=== PATIENT | female | born 1955 | race Caucasian/White ===

== ENCOUNTER → 2019-10-26 11:20 | Outpatient (BNVA) | payer MEDICARE, MEDICAID, SELFPAY | PROVIDERS: Family Provider Family Medicine; Visit Provider Obstetrics & Gynecology | DX: N89.1 Moderate vaginal dysplasia (principal) | CPT/HCPCS: 88175 ==

== ENCOUNTER 2019-11-10 10:55 | Outpatient (CLI) | payer MEDICARE, SELFPAY ==
--- NOTE | 2019-11-10 11:42 | MM_ITS ---
WS: [id number] DIAGNOSTIC LEFT DIGITAL MAMMOGRAM WITH CAD HISTORY: HX OF BREAST CA (RT MAST) COMPARISON: None available. Technique: CC, MLO and ML views. Breast composition: There are scattered areas of fibroglandular density. Calcifications in the anterior mid breast. No distortion. No interval change. MM/[place] [id number] IMPRESSION: BI-RADS: 2-Benign FOLLOW UP: 1 Year Follow-up
== END 2019-11-10 10:56 | disposition home or self-care (01) ==
LOC: RADSHAW 11:00
PROVIDERS: PCP Family Medicine; Visit Provider Family Medicine
DX: Z85.3 Personal history of malignant neoplasm of breast (principal)
CPT/HCPCS: 77065

== ENCOUNTER 2020-10-23 14:00 | Outpatient (CLI) | payer MEDICARE, MEDICAID, SELFPAY ==
--- NOTE | 2020-10-23 14:19 | XR_ITS ---
WS: [id number] SCREENING DEXA SCAN [facility] CLINICAL INFORMATION: OSTEOPOROSIS COMPARISON: FINDINGS: The L1-L4 bone mineral density measures 0.986 g/cm2. This corresponds to a T score score of -1.6 and Z score of -0.3. Left femoral neck bone mineral density measures 0.915 g/cm2. This corresponds to a T score of -0.7 an d Z score of 0.3. Right femoral neck bone mineral density measures 0.918 g/cm2. This corresponds to a T score -0.7of an d Z score of 0.4. Mean femoral neck bone mineral density measures 0.917 g/cm2. This corresponds to a T score of -0.7 an d Z score of 0.4. XR/XR DEXA axial skeleton* [id number] IMPRESSION: Osteopenia lumbar spine. Normal bone mineralization femoral necks. Patient's FRAX calculated 10 year probability for major osteoporotic fracture i s 9.3 % and osteoporotic hip fracture is 1.1%.
== END 2020-10-23 14:01 | disposition home or self-care (01) ==
PROVIDERS: PCP Family Medicine; Visit Provider Family Medicine
DX: M81.0 Age-related osteoporosis without current pathological fracture (principal); M85.88 Other specified disorders of bone density and structure, other site
CPT/HCPCS: 77080

== ENCOUNTER → 2020-11-22 13:23 | Outpatient (BNVA) | payer MEDICARE, SELFPAY | PROVIDERS: PCP Family Medicine; Visit Provider Nurse Practitioner Women's Health | DX: N89.1 Moderate vaginal dysplasia (principal); Z85.3 Personal history of malignant neoplasm of breast; Z86.001 Personal history of in-situ neoplasm of cervix uteri; Z01.419 Encounter for gynecological examination (general) (routine) without abnormal findings | CPT/HCPCS: 88175 ==

== ENCOUNTER → 2020-12-28 11:32 | Outpatient (BNVA) | payer MEDICARE, MEDICAID, SELFPAY | PROVIDERS: PCP Family Medicine; Visit Provider Obstetrics & Gynecology | DX: R87.610 Atypical squamous cells of undetermined significance on cytologic smear of cervix (ASC-US) (principal); R87.810 Cervical high risk human papillomavirus (HPV) DNA test positive | CPT/HCPCS: 88305 ==

== ENCOUNTER 2021-01-21 13:21 | Outpatient (CLI) | payer MEDICARE, MEDICAID, SELFPAY ==
--- NOTE | 2021-01-21 13:39 | MM_ITS ---
WS: [id number] LEFT DIGITAL MAMMOGRAPHY WITH CAD CLINICAL INFORMATION: HX OF BREAST CA;RT MASTECTOMY COMPARISON: November 10, 2019 TECHNIQUE: 3 views of the left breast were obtained. FINDINGS: Scattered fibroglandular densities of the left breast. Punctate and lucent centered calcifications. V ascular calcification. No suspicious focal mass, asymmetry, calcifications, or architectural distortion. No evidence of roberta gnancy. MM/[place] [id number] IMPRESSION: BI-RADS: 2-Benign FOLLOW UP: 1 Year Follow-up Recommend return to annual diagnostic mammography.
== END 2021-01-21 13:22 | disposition home or self-care (01) ==
LOC: RADSHAW 13:23
PROVIDERS: PCP Family Medicine; Visit Provider Family Medicine
DX: Z85.3 Personal history of malignant neoplasm of breast (principal); Z90.11 Acquired absence of right breast and nipple
CPT/HCPCS: 77065

== ENCOUNTER → 2022-01-10 10:30 | Outpatient (BNVA) | payer MEDICARE, MEDICAID, SELFPAY | PROVIDERS: PCP Family Medicine; Visit Provider Obstetrics & Gynecology | DX: Z12.4 Encounter for screening for malignant neoplasm of cervix (principal); Z87.42 Personal history of other diseases of the female genital tract; Z12.39 Encounter for other screening for malignant neoplasm of breast; Z85.3 Personal history of malignant neoplasm of breast; Z12.11 Encounter for screening for malignant neoplasm of colon | CPT/HCPCS: 87624 ==

== ENCOUNTER 2022-01-14 09:29 | Outpatient (CLI) | payer MEDICARE, MEDICAID, SELFPAY ==
--- NOTE | 2022-01-14 09:38 | MM_ITS ---
WS: [id number] DIAGNOSTIC LEFT DIGITAL TOMOSYNTHESIS MAMMOGRAPHY WITH CAD. HISTORY: Screening. History of RIGHT breast cancer. COMPARISON: 01/21/2021, 11/10/2019 Technique: CC, MLO and ML views. Breast composition: There are scattered areas of fibroglandular density. Benign calcifications throu ghout the breast. No mass or suspicious calcification MM/[place] [id number] IMPRESSION: BI-RADS: 2-Benign FOLLOW UP: 1 Year Follow-up
== END 2022-01-14 09:30 | disposition home or self-care (01) ==
LOC: RAD 09:31
PROVIDERS: PCP Family Medicine; Visit Provider Obstetrics & Gynecology
DX: Z85.3 Personal history of malignant neoplasm of breast (principal)
CPT/HCPCS: 77061

== ENCOUNTER → 2022-01-22 10:41 | Outpatient (BNVA) | payer MEDICARE, MEDICAID, SELFPAY | PROVIDERS: PCP Family Medicine; Visit Provider Surgery | DX: Z86.010 Personal history of colon polyps (principal) | CPT/HCPCS: 99203 ==

== ENCOUNTER → 2022-03-07 11:21 | Outpatient (BNVA) | payer MEDICARE, MEDICAID, SELFPAY | PROVIDERS: PCP Family Medicine; Visit Provider Obstetrics & Gynecology | DX: R87.610 Atypical squamous cells of undetermined significance on cytologic smear of cervix (ASC-US) (principal); R87.810 Cervical high risk human papillomavirus (HPV) DNA test positive | CPT/HCPCS: 88305 ==

== ENCOUNTER 2022-04-03 07:44 | Day surgery (SDC) | payer MEDICARE, SELFPAY ==
[2022-04-01 08:51] VITALS: BMI 27.4
[2022-04-03 08:14] VITALS: BP 152/69; PULSE 64; RESP 17; TEMP 36.9; O2SAT 96
[2022-04-03] MEDS: sodium chloride 0.9% 1,000 ML 30 ML IV (08:20)
--- NOTE | 2022-04-03 08:29 | ANES.PREANE2 ---
Pre-Anesthetic Assessment Height/Weight: Height 1.63 m Weight 72.575 kg Temp Pulse Resp BP Pulse Ox O2 Del Method 98.4 F 64 17 152/69 96 04/03/22 08:14 04/03/22 08:14 04/03/22 08:14 04/03/22 08:14 04/03/22 08:14 04/03/22 08:14 Preop Diagnosis: History of colon polyps Operation Date: 04/03/22 08:45 Proposed Procedures p Colonoscopy 78582,Z12.11(Not Applicable) - Rodrick Pickens MD Familial anesthetic complications: None Was Beta Nehemias taken within 24 hours: Yes Was Clonidine taken within 24 hours: N/A Last intake: Intake Last Liquid Date 04/02/22 Last Liquid Time 18:00 Last Solid Date 04/01/22 Last Solid Time 15:00 Social No alcohol and No tobacco Exam alert, oriented x 3, clear to auscultation bilaterally and regular rate & rhythm Airway Dentition: false CV/HEM Hypertension Metabolic Diabetes Mellitus and Hyperlipidemia Anesthetic Plan ASA status: 3 Anesthesia: MAC Risk of > 500 ml blood loss (7ml/kg in children): No Medications/Allergies Home Medications Medication Instructions Recorded Confirmed Last Taken Type atorvastatin 20 mg tablet 20 mg PO DAILY 10/26/19 04/03/22 04/01/22 History cholecalciferol (vitamin D3) 25 25 mcg PO DAILY 10/26/19 04/03/22 03/31/22 History mcg (1,000 unit) tablet empagliflozin 25 mg tablet 25 mg PO DAILY 10/26/19 04/03/22 04/01/22 History (Jardiance) lisinopril 5 mg tablet 5 mg PO DAILY 10/26/19 04/03/22 04/02/22 History metformin 500 mg tablet,extended 500 mg PO DAILY 10/26/19 04/03/22 04/02/22 History release 24 hr metoprolol tartrate 100 mg tablet 100 mg PO DAILY 10/26/19 04/03/22 04/02/22 History sitagliptin 100 mg tablet (Januvia) 100 mg PO DAILY 10/26/19 04/03/22 04/01/22 History peg 3350-electrolytes 236 240 ml PO Q10M #4,000 mL 01/22/22 04/03/22 04/02/22 Rx gram-22.74 gram-6.74 gram-5.86 gram solution (Golytely) Allergies Allergy/AdvReac Type Severity Reaction Status Date / Time Penicillins Allergy rash, Verified 04/03/22 08:16 itching PFS Anesthesia Medical History Diabetes History of breast cancer (~2002) adjuvant chemo and radiation History of carcinoma in situ of cervix Hyperlipidemia Hypertension No pertinent past medical history neghx:thyroid, dvt/pe PCP: Titus Lawrence Vaginal intraepithelial neoplasia II Surgical History History of appendectomy (~2010) Open appendectomy in 2010 History of bilateral tubal ligation (~1978) Performed at time of . History of section, low transverse (~1978) History of conization of cervix (~05/10/13) LEEP. Performed by Dr. Resendiz for LANCE-2. History of mastectomy (~2002) Removal of right breast for breast cancer in 2002. Family History Mother Diabetes Hypertension Stroke Heart disease Social History Smoking and tobacco status: never smoked Alcohol intake: never Other details last substance use: Denies drug use. Data Anesthesia Cardiac Studies: No Data to Display
--- NOTE | 2022-04-03 08:31 | W.PM.OPSFHP ---
Same Day Surgery H&P Indication for Procedure/HPI DATE OF PROCEDURE: April 03, 2022 CHIEF COMPLAINT/INDICATIONFOR SURGICAL PROCEDURE: I am here for colonoscopy PREOP DIAGNOSIS: History of colon polyps PLANNED PROCEDURE: Operation Date: 04/03/22 08:45 Proposed Procedures p Colonoscopy 64276,Z12.11(Not Applicable) - Rodrick Pickens MD 01/22/2022 This is a pleasant 66 years old female patient with history of colon polyps, last colonoscopy was done back in 2012, she denies bleeding per rectum or history of colon cancer, patient reports that she is a breast cancer survivor. 04/03/2022 Patient comes today for surveillance colonoscopy ROS All systems have been reviewed negative except as for the above or per problem list. Medications/Allergies* Home Medications Medication Instructions Recorded Confirmed Type atorvastatin 20 mg tablet 20 mg PO DAILY 10/26/19 04/03/22 History cholecalciferol (vitamin D3) 25 25 mcg PO DAILY 10/26/19 04/03/22 History mcg (1,000 unit) tablet empagliflozin 25 mg tablet 25 mg PO DAILY 10/26/19 04/03/22 History (Jardiance) lisinopril 5 mg tablet 5 mg PO DAILY 10/26/19 04/03/22 History metformin 500 mg tablet,extended 500 mg PO DAILY 10/26/19 04/03/22 History release 24 hr metoprolol tartrate 100 mg tablet 100 mg PO DAILY 10/26/19 04/03/22 History sitagliptin 100 mg tablet (Januvia) 100 mg PO DAILY 10/26/19 04/03/22 History Allergies/Adverse Reactions Allergy/AdvReac Type Severity Reaction Status Date / Time Penicillins Allergy rash, Verified 04/03/22 08:32 itching Pertinent History/Comorbid Conditions* Medical History (Updated 01/26/22 @ 21:12 by Wilmar Abrue MD) Diabetes History of breast cancer (~2002) adjuvant chemo and radiation History of carcinoma in situ of cervix Hyperlipidemia Hypertension No pertinent past medical history neghx:thyroid, dvt/pe PCP: Titus Lawrence Vaginal intraepithelial neoplasia II Surgical History (Updated 11/22/20 @ 09:13 by Libia Jordan L[employer]CH WAGON OPERATOR, WHNP) History of appendectomy (~2010) Open appendectomy in 2010 History of bilateral tubal ligation (~1978) Performed at time of . History of section, low transverse (~1978) History of conization of cervix (~05/10/13) LEEP. Performed by Dr. Resendiz for LANCE-2. History of mastectomy (~2002) Removal of right breast for breast cancer in 2002. Family History (Updated 10/26/19 @ 08:51 by Imani Cabral LPN) Diabetes Mother Heart disease Mother Hypertension Mother Stroke Mother Social History Smoking and tobacco status: never smoked Alcohol intake: never Other details last substance use: Denies drug use. Pertinent Exam Findings alert, oriented x 3, regular rate & rhythm and procedure specific exam findings (Abdominal exam nontender nondistended soft) Recommendations Surgery/Procedure today (Colonoscopy with possible biopsy) Coding Level of Care Code Acute Motor Equipment Lieutenant for Luigi Gomez
[2022-04-03 08:50] LABS: Glucose Point of Care 69 mg/dL (70-110)
[2022-04-03 09:12] VITALS: BP 111/56; PULSE 62; RESP 18; TEMP 36.4; O2SAT 99
[2022-04-03 09:25] VITALS: BP 118/67; PULSE 64; RESP 16; O2SAT 97
--- NOTE | 2022-04-03 15:47 | ANE.PACU2 ---
Inpatient post-anesthesia follow up: Airway intact: Yes Vital signs: Temperature 97.5 F Pulse Rate 64 Respiratory Rate 16 Blood Pressure 118/67 Pulse Oximetry 97 Oxygen Delivery Me thod Room Air Oxygen Flow Rate Fraction of Inspir ed Oxygen Hydration adequate: Yes Nausea and vomiting: No Pain level: 1 Mental status: Baseline
== END 2022-04-03 09:35 | disposition home or self-care (01) ==
PROVIDERS: PCP Family Medicine; Visit Provider Surgery
PROC: 0DJD8ZZ Inspection of Lower Intestinal Tract, Via Natural or Artificial Opening Endoscopic (ICD-10-PCS; CPT 45378; principal; 2022-04-03 08:45)
DX: Z12.11 Encounter for screening for malignant neoplasm of colon (principal); Z86.010 Personal history of colon polyps; K57.30 Diverticulosis of large intestine without perforation or abscess without bleeding; Z85.3 Personal history of malignant neoplasm of breast; Z79.84 Long term (current) use of oral hypoglycemic drugs; E78.5 Hyperlipidemia, unspecified; I10 Essential (primary) hypertension
CPT/HCPCS: 36416; 45378; 82962; J2704; J7030

== ENCOUNTER → 2022-04-15 15:45 | Outpatient (BNVA) | payer MEDICARE, SELFPAY | PROVIDERS: PCP Family Medicine; Visit Provider Surgery | DX: Z09 Encounter for follow-up examination after completed treatment for conditions other than malignant neoplasm (principal); K57.31 Diverticulosis of large intestine without perforation or abscess with bleeding; Z86.010 Personal history of colon polyps | CPT/HCPCS: 99212 ==

== ENCOUNTER 2023-02-09 14:41 | Outpatient (CLI) | payer MEDICARE, MEDICAID, SELFPAY ==
--- NOTE | 2023-02-09 14:51 | MM_ITS ---
WS: [id number] LEFT 3D TOMOSYNTHESIS DIGITAL MAMMOGRAPHY WITH CAD CLINICAL INFORMATION: ANNUAL - HX BR CA; RT MST HISTORY: History of RIGHT mastectomy COMPARISON: 2021 TECHNIQUE: 3 views of the left breast were obtained. FINDINGS: Scattered fibroglandular densities of the left breast. Vascular calcification. Punctate and lucent ce ntered calcifications. No suspicious focal mass, asymmetry, calcifications, or architectural distortion. No evidence of roberta gnancy. IMPRESSION: MM/[place] [id number] BI-RADS: 2-Benign FOLLOW UP: 1 Year Follow-up Recommend return to annual diagnostic mammography.
== END 2023-02-09 14:42 | disposition home or self-care (01) ==
PROVIDERS: PCP Family Medicine; Visit Provider Obstetrics & Gynecology
DX: Z85.3 Personal history of malignant neoplasm of breast (principal); Z90.11 Acquired absence of right breast and nipple
CPT/HCPCS: 77061; G0279

== ENCOUNTER → 2023-03-01 12:51 | Outpatient (BNVA) | payer MEDICARE, MEDICAID, SELFPAY | PROVIDERS: PCP Family Medicine; Visit Provider Emergency Medicine | DX: R05.9 Cough, unspecified (principal); J20.9 Acute bronchitis, unspecified | CPT/HCPCS: 87400; 87426 ==

== ENCOUNTER → 2024-02-15 15:57 | Outpatient (BNVA) | payer MEDICARE, MEDICAID, SELFPAY | PROVIDERS: PCP Family Medicine; Visit Provider Obstetrics & Gynecology | DX: Z12.4 Encounter for screening for malignant neoplasm of cervix (principal) | CPT/HCPCS: 87624 ==

== ENCOUNTER 2024-03-10 10:42 | Outpatient (CLI) | payer MEDICARE, MEDICAID, SELFPAY ==
--- NOTE | 2024-03-10 11:00 | MM_ITS ---
WS: [id number] LEFT 3D TOMOSYNTHESIS DIGITAL MAMMOGRAPHY WITH CAD CLINICAL INFORMATION: hx of breast caZ85.3 HISTORY: RIGHT breast cancer COMPARISON: 2022 TECHNIQUE: 3 views of the left breast were obtained. FINDINGS: Scattered fibroglandular densities of the left breast. Incidental punctate and lucent centered calcif ications. Vascular calcifications. No suspicious focal mass, asymmetry, calcifications, or architectural distortion. No evidence of roberta gnancy. MM/MM diag LT tomosynthesis [id number] IMPRESSION: DENSITY: There are scattered areas of fibroglandular density. BI-RADS: 2 - Benign. FOLLOW UP: 1 Year Follow-up Recommend return to annual diagnostic mammography.
== END 2024-03-10 10:43 | disposition home or self-care (01) ==
LOC: RAD 10:44
PROVIDERS: PCP Family Medicine; Visit Provider Obstetrics & Gynecology
DX: Z85.3 Personal history of malignant neoplasm of breast (principal); R92.323 Mammographic fibroglandular density, bilateral breasts; R92.1 Mammographic calcification found on diagnostic imaging of breast
CPT/HCPCS: 77061; G0279

== ENCOUNTER 2025-03-15 13:55 | Outpatient (CLI) | payer MEDICARE, MEDICAID, SELFPAY ==
--- NOTE | 2025-03-15 14:03 | MM_ITS ---
WS: [id number] LEFT 3D TOMOSYNTHESIS DIGITAL MAMMOGRAPHY WITH CAD CLINICAL INFORMATION: hx of breast ca COMPARISON: 2023 TECHNIQUE: 3 views of the left breast were obtained. FINDINGS: Scattered fibroglandular densities of the left breast. Vascular calcification. Incidental punctate and lucent centered calcifications. No suspicious focal mass, asymmetry, calcifications, or architectural distortion. No evidence of malignancy. MM/MM diag LT tomosynthesis [id number] IMPRESSION: DENSITY: There are scattered areas of fibroglandular density. BI-RADS: 2 - Benign. FOLLOW UP: 1 Year Follow-up Recommend return to annual diagnostic mammography.
== END 2025-03-15 13:56 | disposition home or self-care (01) ==
LOC: RAD 13:58
PROVIDERS: PCP Family Medicine; Visit Provider Family Medicine
DX: Z12.31 Encounter for screening mammogram for malignant neoplasm of breast (principal); R92.1 Mammographic calcification found on diagnostic imaging of breast
CPT/HCPCS: 77061; 77063

== ENCOUNTER 2025-04-30 20:44 | Emergency (ER) | payer MEDICARE, MEDICAID, SELFPAY ==
--- OUTSIDE RECORDS SUMMARY | 2025-04-30 20:49 | XMS_ITS | Continuity of Care Document ---
Author Organization [place] - Parvez Jaquez [facility], [facility] ([facility]) Address [address] [place] [address] Care Team Providers Care Sled Maker Name Role Phone MANJINDER NINO Primary Care Provider GREGORY SPENCE Referring Provider [phone] Assessment No assessment recorded. Plan of Treatment Reminders Order Date Submit Date Provider Last Modified By Organization Details Last Modified Time Details Appointments OFFICE VISIT 15 2025 12:45P M Manjinder Nino MD Not available Not available Not available Lab None recorded . Referral None recorded . Procedures None recorded . Surgeries None recorded . Imaging None recorded . Medication Orders None recorded . Patient TargetsNo targets recorded. Patient InstructionsNo instructions recorded. Reason for Referral None Reported. Results Created Date Observation Date Name Description Value Unit Range Abnormal Flag Note LastModifiedBy Organization Detail LastModifiedTime 04/12/2004/12/2025 HBA1C hemaglobin A1C 6.2 4.2-6. 5 Not Available [facility] [address] [facility], [place], [address], 04/12/2025 09:50:19 04/12/20 25 04/12/2025 CBC WBC 9.2 x10 4.0-10 .5 Not Available [employer] [facility] [address] [employer] [facility] 1, [place], [address], 04/12/2025 10:23:42 04/12/20 25 04/12/2025 CBC RBC 4.28 x10 3.50-5 .50 Not Available [facility] [address] [facility] [employer] [facility] 1, [place], [address], 04/12/2025 10:23:42 04/12/20 25 04/12/2025 CBC HGB 13.1 g/dL 12.0-1 6.0 Not Available [facility] [address] [facility] 1, [place], [address], 04/12/2025 10:23:42 04/12/20 25 04/12/2025 CBC HCT 40.8 % 37.0-4 7.0 Not Available [facility] [address] [facility] 1, [place], [address], 04/12/2025 10:23:42 04/12/20 25 04/12/2025 CBC MCV 95.3 fL 80.0-9 9.9 Not Available [facility] [address] [facility] 1, [place], [address], 04/12/2025 10:23:42 04/12/20 25 04/12/2025 CBC MCH 30.5 pg 27.0-3 2.0 Not Available [facility] [address] [facility] 1, [place], [address], 04/12/2025 10:23:42 04/12/20 25 04/12/2025 CBC MCHC 32.0 g/dL 32.0-3 6.0 Not Available [facility] [address] [facility] 1, [place], [address], 04/12/2025 10:23:42 04/12/20 25 04/12/2025 CBC RDW 13.5 % 11.5-1 4.5 Not Available [facility] [address] [facility] 1, [place], [address], 04/12/2025 10:23:42 04/12/20 25 04/12/2025 CBC plt 229.3 x10 140.0- 451.0 Not Available [facility] [address] Suni [facility] 1, [place], [address], 04/12/2025 10:23:42 04/12/20 25 04/12/2025 CBC lymphocytes % 21.1 % 20.0-5 0.0 Not Available [facility] [address] [facility] 1, [place], [address], 04/12/2025 10:23:42 04/12/20 25 04/12/2025 CBC granulcytes % 69.0 % 30.0-7 0.0 Not Available [facility] [address] [facility], [place], [address], 04/12/2025 10:23:42 04/12/20 25 04/12/2025 CBC monocytes % 7.5 % 2.0-16 .0 Not Available [facility] [address] [facility], [place], [address], 04/12/2025 10:23:42 04/12/20 25 04/12/2025 CBC granulcytes# 6.3 x10 Not Elvia ilable [facility] [address] [facility], [place], [address], 04/12/2025 10:23:42 04/12/20 25 04/12/2025 CBC lymphocytes # 1.9 x10 Not Available [facility] [address] [facility] 1, [place], [address], 04/12/2025 10:23:42 04/12/20 25 04/12/2025 CBC monocytes # 0.7 x10 Not Avai lable [facility] [address] [facility] 1, [place], [address], 04/12/2025 10:23:42 04/12/20 25 04/12/2025 CMP (FEMA LE) glucose 97.0 mg/dL 60.0-9 9.0 Not Available [facility] [address] [facility], [place], [address], 04/12/2025 10:29:22 04/12/20 25 04/12/2025 CMP (FEMA LE) BUN (blood urea nitrogen) 23.0 mg/dL 10.0-2 6.0 Not Available [facility] [address] [facility] 1, [place], [address], 04/12/2025 10:29:22 04/12/20 25 04/12/2025 CMP (FEMA LE) creatinine (serum) 0.8 mg/dL 0.4-1. 5 Not Available [facility] [address] [facility] 1, [place], [address], 04/12/2025 10:29:22 04/12/20 25 04/12/2025 CMP (FEMA LE) BUN/creatini ne ratio 28.75 ratio Not Available [facility] [address] [facility] 1, [place], [address], 04/12/2025 10:29:22 04/12/20 25 04/12/2025 CMP (FEMA LE) eGFR calculated 75.2 Not Available [facility] [address] [facility] 1, [place], [address], 04/12/2025 10:29:22 04/12/20 25 04/12/2025 CMP (FEMA LE) total protein 7.2 g/dL 6.0-8. 5 Not Available [facility] [address] [facility] 1, [place], [address], 04/12/2025 10:29:22 04/12/20 25 04/12/2025 CMP (FEMA LE) total bilirubin 0.6 mg/dL 0.2-1. 3 Not Available [facility] [address] [address], [place], [address], 04/12/2025 10:29:22 04/12/20 25 04/12/2025 CMP (FEMA LE) albumin 4.5 g/dL 3.5-5. 5 Not Available [facility] [address] [facility] 1, [place], [address], 04/12/2025 10:29:22 04/12/20 25 04/12/2025 CMP (FEMA LE) globulin 2.7 calc Not Available [facility] [address] [facility] 1, [place], [address], 04/12/2025 10:29:22 04/12/20 25 04/12/2025 CMP (FEMA LE) AST (SGOT) 24.0 U/L 0.0-46 .0 Not Available [facility] [address] [facility], [place], [address], 04/12/2025 10:29:22 04/12/20 25 04/12/2025 CMP (FEMA LE) altv (SGPT) 21.0 U/L 13.0-6 9.0 normal Not Available [facility] [address] [facility], [place], [address], 04/12/2025 10:29:22 04/12/20 25 04/12/2025 CMP (FEMA LE) A/G ratio 1.7 ratio Not Available [facility] [address] [facility], [place], [address], 04/12/2025 10:29:22 04/12/20 25 04/12/2025 CMP (FEMA LE) ALP phos 66.0 U/L 30.0-1 40.0 normal Not Available [facility] [address] [facility], [place], [address], 04/12/2025 10:29:22 04/12/20 25 04/12/2025 CMP (FEMA LE) calcium 9.8 mg/dL 8.4-10 .5 Not Available [facility] [address] [facility] 1, [place], [address], 04/12/2025 10:29:22 04/12/20 25 04/12/2025 CMP (FEMA LE) sodium 141.0 mmol/ L 136.0- 145.0 Not Available [facility] [address] [facility] 1, [place], [address], 04/12/2025 10:29:22 04/12/20 25 04/12/2025 CMP (FEMA LE) potassium 4.4 mmol/ L 3.5-5. 1 Not Available [facility] [address] [facility] 1, [place], [address], 04/12/2025 10:29:22 04/12/20 25 04/12/2025 CMP (FEMA LE) chloride 104.0 mmol/ L 98.0-1 10.0 normal Not Available [facility] [address] [facility] 1, [place], [address], 04/12/2025 10:29:22 04/12/20 25 04/12/2025 CMP (FEMA LE) C02 27.0 mmol/ L 22.0-3 1.0 Not Available [facility] [address] [facility] 1, [place], [address], 04/12/2025 10:29:22 04/12/20 25 04/12/2025 CMP (FEMA LE) anion gap 10.0 calc Not Available [facility] [address] [facility] 1, [place], [address], 04/12/2025 10:29:22 04/12/20 25 04/12/2025 CMP (FEMA LE) osmolality 294.5 calc Not Available [facility] [address], [place], [address], 04/12/2025 10:29:22 04/12/20 25 04/13/2025 ALBUM IN, RANDO M URINE W/CRE ATINI NE creatinine, random urine 69 mg/dL 20-275 normal Not Available [address] [address] [place], [address], 04/13/2025 10:38:36 04/12/20 25 04/13/2025 ALBUM IN, RANDO M URINE W/CRE ATINI NE albumin, urine 0.8 mg/dL see note: normal Refer ence Range : Refer ence Range Not estab lishe d Not Available [address] [address] [address] , [place], [address], 04/13/2025 10:38:36 04/12/20 25 04/13/2025 ALBUM IN, RANDO M URINE W/CRE ATINI NE albumin/crea tinine ratio, random urine 12 mg/g_ creat <30 normal The ADA defin es abnor malit ies in album in excre tion as follo ws: Album inuri a Categ ory Resul t (mg/g creat inine ) Jossy l to Mildl y incre ased <30 Moder ately incre ased 30-29 9 Sever emerald incre ased > OR = 300 The ADA recom mends that at least two of three speci mens colle cted withi n a 3-6 month perio d be abnor mal befor e consi james g a patie nt to be withi n a diagn ostic categ ory. Not Available [facility] [address] [place], [address], 04/13/2025 10:38:36 04/24/20 25 04/03/2022 colon oscop y proce dure (PROC ) No observ ation record ed. [email or web address] Not Available 04/24 10:47:50 Result Notes None recorded. Problems Name Problem SNOMED Code Status Onset Date Resolution Date Notes Provider Name and Address Organization Details Recorded Time Uncontro lled type 2 diabetes mellitus 750141598 Completed 202010/09/2020 DIABETES MELLITUS TYPE 2, UNCONTRO LLED - Status is Inactive ; Recorded 10/10/19 9:59AM by Manjinder Nino MD, Annotati on/Adden dum; Promoted ; acuity set as *; Not Available [facility] 3 03:13:50 Colonosc opy Completed 202110/17/2024 needs colonosc opy 2022; 04/14/20 9:08AM by Rosemarie Corcoran RN, Office Visit; Promoted ; acuity set as *; [facility] 5 16:58:55 [facility] hyperten aylin 60220671 Active 2022 Not Available [facility] 3 16:56:49 Osteopor osis 52642400 Active 2022 Not Available [facility] 3 16:56:49 Hyperlip idemia 97473914 Active 2022 Not Available [facility] 3 16:56:49 Malignan t neoplasm of breast 354710812 Completed 202210/17/2024 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 Procedures Surgical History Date Name Laterality Status Provider Name and Address Organization Details Recorded Time 3 Punch Biopsies, Multiple completed Manjinder Nino MD [address] [place] [address], [phone], [facility], LJorgeLLuigi 11/03/2022 10:30:33 2 colonoscopy completed [facility], [place] 04/19/2025 13:56:20 3 colonoscopy completed [facility], LJorgeLJorgeCJorge 10/17/2024 09:56:54 Mastectomy completed [facility], LJorgeLJorgeCJorge 10/13/2022 10:54:51 Imaging Results None recorded. Procedure Notes None recorded. Medical Equipment None Reported. Allergies Allergen ID Allergen Name Allergen Category Reaction Reaction Severity Criticality Documentation Date Start Date Code Code System Note Provider Name and Address Organization Details Recorded Time 4212 Product containin g penicilli n (product) medicatio n Not available Not available Not available 10/13/2022 26996 8001 SNOMED CARMENZA [facility] LJorgeLJorgeCJorge 3 10:48:06 80220 penicilli n V potassium medicatio n Not available Not available Not available 11/29/2022 5 RxNorm Comme nt: Recor ded 04/14 9:08A M by Rosemarie Corcoran RN, Offic e Visit ; Promo raiza; Fredi villalobos ce: *; Reaso n: Drug aller gy; ; CARMENZA [facility], L.L.CJorge 3 11:07:49 Medications Name Sig Start Date Stop Date Status Note LastModified by Organization Details LastModified Time atorvasta tin 20 mg tablet TAKE 1 TABLET EVERY DAY 2024 active Not Available Not Available Not Avai lable Vitamin B-12 100 mcg tablet daily 04/18 completed 0; Recorded 04/14/20 22 9:08AM by Rosemarie Corcoran, RN, Office Visit; Not Available Not Available Not Available metoprolo l tartrate 100 mg tablet TAKE 1 TABLET EVERY DAY 2024 active Not Available Not Available Not Avai lable hydrocodo ne 5 mg-acetam inophen 325 mg tablet TAKE 1-2 TABLETS BY MOUTH EVERY 5 HOURS NEEDED FOR PAIN 04/15 completed Not Available Not Available Not Available prednison e 20 mg tablet Take 2 tablets every day by oral route in the morning for 6 days. 12/09 completed Not Available Not Available Not Available Accu-Chek Softclix Lancets TEST BLOOD SUGAR TWICE DAILY 2024 active Not Available Not Available Not Avai lable aspirin 81 mg tablet,de layed release Take 1 tablet every day by oral route. active Not Available Not Available No t Available lisinopri l 5 mg tablet TAKE 1 TABLET EVERY DAY 2024 active Not Available Not Available Not Avai lable albuterol sulfate HFA 90 mcg/actua tion aerosol inhaler TAKE 2 PUFFS BY MOUTH EVERY 4 HOURS NEEDED active Not Available Not Available No t Available metformin ER 500 mg tablet,ex tended release 24 hr TAKE 1 TABLET TWICE DAILY 2024 active Not Available Not Available Not Avai lable azithromy yareli 500 mg tablet TAKE 1 TABLET BY MOUTH DAILY FOR 5 DAYS 04/15 completed Not Available Not Available Not Available atorvasta tin daily 04/15 completed 436; Recorded 04/16/20 22 10:05AM by Carmenza Condon LPN (Authori [employer]akeda through Manjinder iNno MD), Annotati on/Adden dum; Mail Order Quantity : 90 Tablet; Mail Order Days: 90 Days; Refill Quantity : 90; Tablet; Not Available Not Available Not Available Softclix Lancets two times daily 04/15 completed Recorded 04/16/20 22 10:07AM by Carmenza Condon LPN, Historic al Summary; Mail Order Quantity : 200 Each; Mail Order Days: 100 Days; Refill Quantity : 0; Not Available Not Available Not Available Fish Oil 1 daily 04/18 completed Not Available Not Available Not Available Aspirin EC daily 04/15 completed Recorded 11/20/19 22 10:21AM by Pennie Milner LPN, Office Visit; Refill Quantity : 100; Tablet; Not Available Not Available Not Available metoprolo l tartrate daily 04/15 completed 436; Recorded 04/16/20 22 10:06AM by Carmenza Condon LPN (Authori [employer]akeda through Manjinder Nino MD), Annotcatherine on/Adden dum; Mail Order Quantity : 90 Tablet; Mail Order Days: 90 Days; Refill Quantity : 90; Tablet; Not Available Not Available Not Available Vitamin D daily 04/15 completed Recorded 11/20/19 22 10:21AM by Pennie Milner LPN, Office Visit; Refill Quantity : 90; Capsule; Not Available Not Available Not Available lisinopri l daily 02/23 completed 436; Recorded 04/22/20 22 11:32AM by Carmenza Condon LPN (Authori zed through Manjinder Nino MD), Clyde on/Adden dum; Mail Order Quantity : 90 Tablet; Mail Order Days: 90 Days; Refill Quantity : 90; Tablet; Not Available Not Available Not Available Vitamin D3 1 daily 04/18 completed Not Available Not Available Not Available metformin two times daily 04/15 completed 436; Recorded 04/16/20 22 10:06AM by Carmenza Condon LPN (Authori lanid through Manjinder Nino MD), Annotcatherine on/Adden dum; Mail Order Quantity : 180 Tablet; Mail Order Days: 90 Days; Refill Quantity : 180; Tablet; Not Available Not Available Not Available Januvia 100 mg tablet TAKE 1 TABLET EVERY DAY 2024 active Not Available Not Available Not Avai lable Accu-Chek Linkassis t Insertion Device two times daily 04/15 completed 436; Recorded 04/16/20 22 10:03AM by Carmenza Condon LPN (Authori [employer]akeda through Manjinder Nino MD), Clyde on/Adden dum; Mail Order Quantity : 1 Each; Refill Quantity : 0; Not Available Not Available Not Available GaviLyte- G 236 gram-22.7 4 gram-6.74 gram-5.86 gram oral solution TAKE 240 ML BY MOUTH EVERY 10 MINUTES UNTIL FECAL EFFLUENT IS CLEAR 10/13 completed Not Available Not Available Not Available One-A-Day Women's 50 Plus 1 daily active Not Available Not Available Not Available Jardiance 25 mg tablet TAKE 1 TABLET EVERY DAY 2024 active Not Available Not Available Not Avai lable Accu-Chek Guide test strips TEST BLOOD SUGAR TWO TIMES DAILY 2024 active Not Available Not Available Not Avai lable Accu-Chek Guide Glucose Meter active Not Available Not Available Not Available Vitals Date Recorded Body height Body mass index (BMI) Body weight Body temperature Heart rate Oxygen saturation Systolic And Diastolic Provider Name and Address Organization Details Last Updated DateTime 160.02 cm 27.1 kg/m2 50327.6 3 g 97.7 [degF] 75 /min 97 % 132/70 mm[Hg] CARMENZA CONDON [facility] 14:01:06 Social History Question Answer Notes LastModified by [employer] Details LastModified Time Tobacco Smoking Status Never Smoker CARMENZA CONDON [facility] 10/13/2022 10:54:32 What Was The Date Of Your Most Recent Tobacco Screening? 11/25/2024 [email or web address] Information not available 11/25/2024 Sex: Unknown Functional Status Question Answer Note LastModified by [employer] Details LastModified Time Do you use any illicit or recreational drugs? No [email or web address] Information not available 10/13/2022 Do you or have you ever used any other forms of tobacco or nicotine? No [email or web address] Information not available 04/15/2023 What is your level of alcohol consumption? None [email or web address] Information not available 10/13/2022 Do you or have you ever used any nicotine-free cigarettes, vape, or chewing tobacco? No [email or web address] Information not available 04/19/2025 Mental Status None recorded. Family History Relationship Description Onset Age of this Age Resolved Age Notes LastModified by Organization Details LastModified Time Mother Myocardial infarction age 51-com plicat ions from DM [email or web address] Not available 11/13/2022 11:07:20 Mother Essential hypertension [email or web address] Not available 19:21:10 Father Essential hypertension [email or web address] Not available 19:21:10 Medical History Condition Response Diabetes Y Hypertension Y High Cholesterol Y Gynecological HistoryNo gynecological history recorded. Obstetrics History GPAL:G 0 P 0 0 0 0 Immunizations Vaccine Type Date Status Note Provider Nam e and Address Organization Details Recorded Time Influenza, adjuvanted, quadrivalent, PF 3 completed CARMENZA CONDON null, [facility] 06/09/2023 14:24:46 COVID-19, mRNA, LNP-S, PF, 50 mcg/0.5 mL 4 completed CARMENZA CONDON null, [facility] 04/18/2024 11:52:37 Influenza, high-dose, trivalent, PF 4 completed CARMENZA CONDON null, [facility] 04/18/2024 11:52:37 Influenza, high-dose, trivalent, PF 5 completed Not Available [facility] 04/19/2025 13:43:17 Influenza, high-dose, quadrivalent, PF 1 completed CARMENZA CONDON null, [facility] 06/09/2023 14:19:57 Influenza, high-dose, quadrivalent, PF 2 completed CARMENZA CONDON null, [facility] 06/09/2023 14:19:57 COVID-19, mRNA, LNP-S, PF, 100 mcg/0.5mL dose or 50 mcg/0.25mL dose 1 completed CARMENZA CONDON null, [facility] 06/09/2023 14:19:57 COVID-19, mRNA, LNP-S, PF, 100 mcg/0.5mL dose or 50 mcg/0.25mL dose 1 completed CARMENZA altamirano, [facility] 06/09/2023 14:19:57 COVID-19, mRNA, LNP-S, PF, 100 mcg/0.5mL dose or 50 mcg/0.25mL dose 1 completed CARMENZA CONDON null, [facility] 06/09/2023 14:19:57 Pneumococcal conjugate PCV20, polysaccharide [id number] conjugate, adjuvant, PF 2 completed CARMENZA CONDON null, [facility] 06/09/2023 14:19:57 COVID-19, mRNA, LNP-S, bivalent, PF, 50 mcg/0.5 mL or 25mcg/0.25 mL dose 2 completed CARMENZA altamirano, [facility] 06/09/2023 14:19:57 zoster live 0 completed CARMENZA CONDON null, [facility] 06/09/2023 14:24:47 Tdap 5 completed CARMENZA altamirano, [facility] 06/09/2023 14:24:47 zoster live 9 completed CARMENZA altamirano, [facility] 06/09/2023 14:24:47 zoster live 9 completed CARMENZA CONDON null, [facility] 06/09/2023 14:24:47 Pneumococcal conjugate PCV 13 1 completed CARMENZA altamirano, [facility] 06/09/2023 14:24:47 Influenza, split virus, trivalent, preservative 0 completed CARMENZA altamirano, [facility] 06/09/2023 14:24:47 Influenza, split virus, trivalent, preservative 8 completed CARMENZA altamirano [facility] 06/09/2023 14:24:47 Influenza, split virus, trivalent, preservative 1 completed CARMENZA altamirano, [facility] 06/09/2023 14:24:47 Past Encounters Encounter ID Performer Location Encounter Start Date Encounter Closed Date Diagnosis/Indication Diagnosis SNOMED-CT Code Diagnosis ICD10 Code Diagnosis IMO Codes Diagnosis Note [id number] Manjinder Nino MD [facility] ([facility]) [address] [place] [phone] 04/12/2025 09:15:20 04/13/2025 10:15:08 Essential hypertension 33490025 I10 Type 2 shira betes mellitus 37487683 E11.69 [id number] Manjinder Nino MD [facility] ([facility]) [address] [place] [phone] 04/19/2025 13:42:56 04/20/2025 17:13:30 Health Concerns Section Related Observation LastModified by Organization Detai ls LastModified Time None Recorded Concern Status LastModified by Organization Details LastModified Time None Recorded Payers Encounter Date Sequence Insurance Name Policy Number Policy Edwards Covered Member ID Edwards Member ID Guarantor Name 04/19/2025 1 [employer] (MEDICARE REPLACEMENT/A DVANTAGE - PPO) Mahendra Lucia [id number] Mahendra Lucia 04/19/2025 2 [place] Mahendra Lucia [id number] Mahendra Lucia Notes Date Note Type Note Provider Name and Address Organization Details Recorded Time 5 text/html DiabetesReported by PatientHPIFor associated symptoms, patient reportscalluses on feetbut reportsno sweats,no increased thirst,no increased appetite,no increased urination,no numbness of feet, andno paresthesias. For duration, patient reportschronic. For control, patient reportsusually well controlled,hemoglobin a1c has been less than 7 (6.2), andhemoglobin a1c goal is less than 7. For compliance, patient reportscompliant with medicationsandcompliant with follow-up visits. For self care, patient reportsmonitoring glucose 2 times per day(105-140). For review finger sticks, (120-150).Complications and Co-morbiditiesFor chronic complications, patient reportsdiabetic nephropathy: no,hypertension: yes, andhyperlipidemia: yes. Hypertension IM/FMReported by PatientHPIFor quality, patient reportshere for check-up. For severity, patient reportsat home bp check: ___ mmg/hg(98-120/60-70s). For duration, patient reportshtn present for ___ years. For onset/timing, patient reportsgradual onset. For self care, patient reportsnon-smoker. For associated symptoms, patient reportsno shortness of breath,no fatigue,no palpitations, andno chest pain. HyperlipidemiaReported by PatientHPIFor duration, patient reportschronic. For risk factors, patient reportsdiabetesandhypertens ion. For control, patient reportsusually well controlledandat goal. For adherence to treatment plan, patient reportsfollows recommended diet. For complications, patient reportsno coronary artery diseaseandno cardiovascular disease.ROS as noted in the HPI Manjinder Nino MD [address] [place] [address], [phone], [facility] 04/19/2025 14:27:09 OBGyn Episode No OBEpisode recorded.
--- OUTSIDE RECORDS SUMMARY | 2025-04-30 20:49 | XMS_ITS | Clinical Summary ---
Author Organization [facility] Address [address] [place] [address] Care Team Providers Care Pipeline Superintendent Division Name Role Phone Unavailable Primary Care Provider Unavailabl e Allergies Active Allergy Reactions Criticality Noted Date Comments Penicillins Rash Low 01/13/2018 Medications empagliflozin (JARDIANCE ORAL) Take by mouth. Active metFORMIN (GLUCOPHAGE) 500 mg tablet Take 500 mg by mouth 2 times daily with meals. Active sitaGLIPtin (JANUVIA) 100 mg Tablet Take 100 mg by mouth daily with breakfast. Active metoprolol tartrate (LOPRESSOR) 100 mg tablet Take 100 mg by mouth 2 times daily. Active atorvastatin (LIPITOR) 10 mg tablet Take 10 mg by mouth late in the day. Active lisinopril (PRINIVIL) 5 mg tablet Take 5 mg by mouth daily. Active Active Problems Problem Noted Date Diagnosed Date Vaginal dysplasia Hx of abnormal cervical Pap smear HTN (hypertension) Diabetes mellitus Cancer Overview (01/16/2018): breast Family History Medical History Relation Name Comments No Known Problems Brother Bone Cancer Father No Known Problems Maternal Grandfather No Known Problems Maternal Grandmother Diabetes Mother No Known Problems Paternal Grandfather No Known Problems Paternal Grandmother No Known Problems Sister Relation Name Status Comments Brother Alive Father Maternal Grandfather Maternal Grandmother Mother Paternal Grandfather Paternal Grandmother Sister Alive Social History Tobacco Use Types Packs/Day Years Used Date Smoking Tobacco: Never Smokeless Tobacco: Never Alcohol Use Standard Drinks/Week Comments No 0 (1 standard drink = 0.6 oz pur e alcohol) Comments No Sex and Gender Information Value Date Recorded Sex Assigned at Not on file Legal Sex Female 10:16 AM CDT Gender Identity Not on file Sexual Orientation Not on file Last Filed Vital Signs Vital Sign Reading Time Taken Comments Blood Pressure 122/76 04/13/2019 1:31 PM RECLAMATION ENGINEER Pulse 66 04/13/2019 1:31 PM RECLAMATION ENGINEER Temperature 36.8 C (98.3 F) 04/13/2019 1:31 PM RECLAMATION ENGINEER Respiratory Rate - - Oxygen Saturation 97% 04/13/2019 1:31 PM RECLAMATION ENGINEER Inhaled Oxygen Concentration - - Weight 73.2 kg (161 lb 6.4 oz) 04/13/2019 1:31 P M RECLAMATION ENGINEER Height 158.8 cm (5' 2.5 ) 04/13/2019 1:31 PM RECLAMATION ENGINEER Body Mass Index 29.05 04/13/2019 1:31 PM RECLAMATION ENGINEER Plan of Treatment Health Maintenance Due Date Last Done Comments DIABETES ANNUAL FOOT EXAM 12/22/1971 DIABETES MICROALBUMIN ANNUAL SCREEN 12/22/1971 LDL CHOLESTEROL ANNUAL 12/22/1971 DTAP/TDAP/TD VACCINES (1 - Tdap) 1972 PNEUMOCOCCAL VACCINE 50+ YEA RS (1 of 2 - PCV) 1972 COLORECTAL SCREENING 1998 Colorectal Cancer Screening 1998 FIT-DNA Q 3 years 1998 FIT/FOBT Q 1 year 1998 Flex Sig/CT Colonography Q 5 years 1998 RSV VACCINE (60+ or ) (1 - Risk 50-74 years 1-dose series) 12/22/2003 ZOSTER VACCINE (1 of 2) 12/22/2003 BREAST CANCER SCREENING 09/19/2016 09/20/2015, 09/18 DIABETES ANNUAL RETINAL EXAM 09/10/2018 09/10/2017, 09/10/2017 DIABETES HBA1C Q 6 MONTHS 10/04/20182017, 12/01/2017, 07/29/2017, Additional history exists OSTEOPOROSIS SCREENING 09/19/2020 09/20/2015 INFLUENZA VACCINE (#1) 2024 Insurance [place]ID [place]
--- OUTSIDE RECORDS SUMMARY | 2025-04-30 20:49 | XMS_ITS | Continuity of Care Document ---
Author Organization LINDA Jaquez [facility] Gaston Cruz, [facility] ([facility]) Address [address] [facility] [place] [address] Care Team Providers Care Bus Dispatcher Interstate Name Role Phone MANJINDER NINO Primary Care Provider GREGORY SPENCE Referring Provider Assessment No assessment recorded. Plan of Treatment Reminders Order Date Submit Date Provider Last Modified By Organization Details Last Modified Time Details Appointments OFFICE VISIT 15 2025 12:45P M Manjinder Nino MD Not available Not available Not available Lab microalbu min/creat inine, mass ratio, urine 2024 025 [facility], [address] [place] [address] [address], [place], [address], 04/13/2025 10:38:36 hemoglobi n A1C/hemog lobin total, QN, blood 2024 025 [facility], [address], [address], [place], [address], 04/12/2025 09:50:19 CMP, serum or plasma 2024 025 [facility]IRA [facility], [address], [address], [place], [address], 04/12/2025 10:29:22 CBC 2024 025 [facility]IRA [facility], [address], [address], [place], [address], 04/12/2025 10:23:42 Referral None recorded. Procedures None recorded. Surgeries None recorded. Imaging None recorded. Medication Orders None recorded. Patient TargetsNo targets recorded. Patient InstructionsNo instructions recorded. Reason for Referral None Reported. Results Created Date Observation Date Name Description Value Unit Range Abnormal Flag Note LastModifiedBy Organization Detail LastModifiedTime 04/12/2004/12/2025 HBA1C hemaglobin A1C 6.2 4.2-6. 5 Not Available [facility] [address], [place], [address], 04/12/2025 09:50:19 04/12/2004/12/2025 CBC WBC 9.2 x10 4.0-10 .5 Not Available [facility] [address], [place], [address], 04/12/2025 10:23:42 04/12/2004/12/2025 CBC RBC 4.28 x10 3.50-5 .50 Not Available [facility] [address], [place], [address], 04/12/2025 10:23:42 04/12/20 25 04/12/2025 CBC HGB 13.1 g/dL 12.0-1 6.0 Not Available [facility] [address], [place], [address], 04/12/2025 10:23:42 04/12/20 25 04/12/2025 CBC HCT 40.8 % 37.0-4 7.0 Not Available [facility] [address], [place], [address], 04/12/2025 10:23:42 04/12/20 25 04/12/2025 CBC MCV 95.3 fL 80.0-9 9.9 Not Available [facility] [address] [facility] 1, [place], [address], 04/12/2025 10:23:42 04/12/20 25 04/12/2025 CBC MCH 30.5 pg 27.0-3 2.0 Not Available [facility] [address] [facility] 1, [place], [address], 04/12/2025 10:23:42 04/12/20 25 04/12/2025 CBC MCHC 32.0 g/dL 32.0-3 6.0 Not Available [facility] [address] [facility] [address] [facility] 1, [place], [address], 04/12/2025 10:23:42 04/12/20 25 04/12/2025 CBC RDW 13.5 % 11.5-1 4.5 Not Available [facility] [address] [facility] 1, [place], [address], 04/12/2025 10:23:42 04/12/20 25 04/12/2025 CBC plt 229.3 x10 140.0- 451.0 Not Available [facility] [address] [facility] [address] [facility] 1, [place], [address], 04/12/2025 10:23:42 04/12/20 25 04/12/2025 CBC lymphocytes % 21.1 % 20.0-5 0.0 Not Available [facility] [address] [facility] [facility] [address] [facility] 1, [place], [address], 04/12/2025 10:23:42 04/12/20 25 04/12/2025 CBC granulcytes % 69.0 % 30.0-7 0.0 Not Available [facility] [address] [facility] [address] [facility] 1, [place], [address], 04/12/2025 10:23:42 04/12/20 25 04/12/2025 CBC monocytes % 7.5 % 2.0-16 .0 Not Available [facility] [address] [facility] [address] [facility] 1, [place], [address], 04/12/2025 10:23:42 04/12/20 25 04/12/2025 CBC granulcytes# 6.3 x10 Not Elvia ilable [facility] [address] [facility] 1, [place], [address], 04/12/2025 10:23:42 04/12/20 25 04/12/2025 CBC lymphocytes # 1.9 x10 Not Available [facility] [address] [facility] 1, [place], [address], 04/12/2025 10:23:42 04/12/20 25 04/12/2025 CBC monocytes # 0.7 x10 Not Avai lable [facility] [address] [facility] 1, [place], [address], 04/12/2025 10:23:42 04/12/20 25 04/12/2025 CMP (FEMA LE) glucose 97.0 mg/dL 60.0-9 9.0 Not Available [facility] [address] [facility] 1, [place], [address], 04/12/2025 10:29:22 04/12/20 25 04/12/2025 CMP (FEMA LE) BUN (blood urea nitrogen) 23.0 mg/dL 10.0-2 6.0 Not Available [facility] [address] [facility] 1, [place], [address], 04/12/2025 10:29:22 04/12/20 25 04/12/2025 CMP (FEMA LE) creatinine (serum) 0.8 mg/dL 0.4-1. 5 Not Available [facility] [address] [facility] 1, [place], [address], 04/12/2025 10:29:22 12/10/20 25 04/12/2025 CMP (FEMA LE) BUN/creatini ne ratio 28.75 ratio Not Available [facility] [address] [facility], [place], [address], 04/12/2025 10:29:22 04/12/20 25 04/12/2025 CMP (FEMA LE) eGFR calculated 75.2 Not Available [facility] [address] [facility] 1, [place], [address], 04/12/2025 10:29:22 04/12/20 25 04/12/2025 CMP (FEMA LE) total protein 7.2 g/dL 6.0-8. 5 Not Available [facility] [address] [facility] 1, [place], [address], 04/12/2025 10:29:22 04/12/20 25 04/12/2025 CMP (FEMA LE) total bilirubin 0.6 mg/dL 0.2-1. 3 Not Available [facility] [address] [facility] 1, [place], [address], 04/12/2025 10:29:22 04/12/20 25 04/12/2025 CMP (FEMA LE) albumin 4.5 g/dL 3.5-5. 5 Not Available [facility] [address] [facility] 1, [place], [address], 04/12/2025 10:29:22 04/12/20 25 04/12/2025 CMP (FEMA LE) globulin 2.7 calc Not Available [facility] [address] [facility] 1, [place], [address], 04/12/2025 10:29:22 04/12/20 25 04/12/2025 CMP (FEMA LE) AST (SGOT) 24.0 U/L 0.0-46 .0 Not Available [facility] [address] [facility] 1, [place], [address], 04/12/2025 10:29:22 04/12/20 25 04/12/2025 CMP (FEMA LE) altv (SGPT) 21.0 U/L 13.0-6 9.0 normal Not Available [facility] [address] [facility] 1, [place], [address], 04/12/2025 10:29:22 04/12/20 25 04/12/2025 CMP (FEMA LE) A/G ratio 1.7 ratio Not Available [facility] [address] [facility] 1, [place], [address], 04/12/2025 10:29:22 04/12/20 25 04/12/2025 CMP (FEMA LE) ALP phos 66.0 U/L 30.0-1 40.0 normal Not Available [facility] [address] [facility] [address] 1, [place], [address], 04/12/2025 10:29:22 04/12/20 25 04/12/2025 CMP (FEMA LE) calcium 9.8 mg/dL 8.4-10 .5 Not Available [facility] [address] [facility], [place], [address], 04/12/2025 10:29:22 04/12/20 25 04/12/2025 CMP (FEMA LE) sodium 141.0 mmol/ L 136.0- 145.0 Not Available [facility] [address] [facility] 1, [place], [address], 04/12/2025 10:29:22 04/12/20 25 04/12/2025 CMP (FEMA LE) potassium 4.4 mmol/ L 3.5-5. 1 Not Available [facility] [address] [facility] [address] [facility] 1, [place], [address], 04/12/2025 10:29:22 04/12/20 25 04/12/2025 CMP (FEMA LE) chloride 104.0 mmol/ L 98.0-1 10.0 normal Not Available [facility] [address] [facility] 1, [place], [address], 04/12/2025 10:29:22 04/12/20 25 04/12/2025 CMP (FEMA LE) C02 27.0 mmol/ L 22.0-3 1.0 Not Available [facility] [address] [facility] 1, [place], [address], 04/12/2025 10:29:22 04/12/20 25 04/12/2025 CMP (FEMA LE) anion gap 10.0 calc Not Available [facility] [address] [facility] 1, [place], [address], 04/12/2025 10:29:22 04/12/20 25 04/12/2025 CMP (FEMA LE) osmolality 294.5 calc Not Available [facility] [address] [facility] 1, [place], [address], 04/12/2025 10:29:22 04/12/20 25 04/13/2025 ALBUM IN, RANDO M URINE W/CRE ATINI NE creatinine, random urine 69 mg/dL 20-275 normal Not Available [facility] [address] [place], [address], 04/13/2025 10:38:36 04/12/20 25 04/13/2025 ALBUM IN, RANDO M URINE W/CRE ATINI NE albumin, urine 0.8 mg/dL see note: normal Refer ence Range : Refer ence Range Not estab lishe d Not Available [facility] [address] [place], [address], 04/13/2025 10:38:36 04/12/20 25 04/13/2025 ALBUM IN, [...] a diagn ostic categ ory. Not Available [facility] [address] [place], [address], 04/13/2025 10:38:36 03/16/20 25 03/15/2025 MAMMO , scree ann, digit al, bilat eral No observ ation record ed. [facility] [address] [place], [address], 04/03/2025 08:21:55 04/24/2004/03/2022 colon oscop y proce dure (PROC ) No observ ation record ed. [email or web address] Not Available 04/24 10:47:50 Result Notes None recorded. Problems Name Problem SNOMED Code Status Onset Date Resolution Date Notes Provider Name and Address Organization Details Recorded Time Uncontro lled type 2 diabetes mellitus 757393385 Completed 202010/09/2020 DIABETES MELLITUS TYPE 2, UNCONTRO LLED - Status is Inactive ; Recorded 10/10/19 9:59AM by Manjinder Nino MD, Annotati on/Adden dum; Promoted ; acuity set as *; Not Available [facility] 03:13:50 Colonosc opy Completed 202110/17/2024 needs colonosc opy 2022; 04/14/20 9:08AM by Rosemarie Corcoran RN, Office Visit; Promoted ; acuity set as *; Rosemarie altamirano [facility] 5 16:58:55 [facility] hyperten aylin 07547312 Active 2022 Not Available [facility] 3 16:56:49 Osteopor osis 48789528 Active 2022 Not Available [facility] 3 16:56:49 Hyperlip idemia 72019120 Active 2022 Not Available [facility] 3 16:56:49 Malignan t neoplasm of breast 390617675 Completed 202210/17/2024 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 Procedures Surgical History Date Name Laterality Status Provider Name and Address Organization Details Recorded Time 3 Punch Biopsies, Multiple completed Manjinder Nino MD [address] [place] [address], [address], [facility] [place] 11/03/2022 10:30:33 2 colonoscopy [facility]2025 13:56:20 3 colonoscopy completed CARMENZA CONDON [facility] LJorgeLLuigi 10/17/2024 09:56:54 Mastectomy completed CARMENZA CONDON [facility] LJorgeLJorgeCJorge 10/13/2022 10:54:51 Imaging Results None recorded. Procedure Notes None recorded. Medical Equipment None Reported. Allergies Allergen ID Allergen Name Allergen Category Reaction Reaction Severity Criticality Documentation Date Start Date Code Code System Note Provider Name and Address Organization Details Recorded Time 4212 Product containin g penicilli n (product) medicatio n Not available Not available Not available 10/13/2022 [id number] SNOMED [facility] 10:48:06 47287 penicilli n V potassium medicatio n Not available Not available Not available 11/29/2022 5 RxNorm Comme nt: Recor ded 04/14 9:08A M by Rosemarie Corcoran RN, Offic e Visit ; Estella eastman; Fredi villalobos ce: *; Reaso n: Drug aller gy; ; [facility] 11:07:49 Medications Name Sig Start Date Stop Date Status Note LastModified by Organization Details LastModified Time atorvasta tin 20 mg tablet TAKE 1 TABLET EVERY DAY 2024 active Not Available Not Available Not Avai lable Vitamin B-12 100 mcg tablet daily 04/18 completed 0; Recorded 04/14/20 9:08AM by Rosemarie Corcoran RN, Office Visit; Not Available Not Available [...] LPN (Authori makeda through Manjinder Nino MD), Annotati on/Add dum; Mail Order Quantity : 90 Tablet; [...] LPN (Authori makeda through Manjinder Nino MD), Annotati on/Adden dum; Mail Order Quantity : 90 Tablet; Mail Order Days: 90 Days; Refill Quantity : 90; Tablet; Not Available Not Available Not Available Vitamin D daily 04/15 completed Recorded 11/20/19 22 10:21AM by Pennie Milner LPN, Office Visit; Refill Quantity : 90; Capsule; Not Available Not Available Not Available lisinopri l daily 02/23 completed 436; Recorded 04/22/20 11:32AM by Carmenza Condon LPN (Authori zed through Manjinder Nino MD), Annotati on/Adden dum; Mail Order Quantity : 90 Tablet; Mail Order Days: 90 Days; Refill Quantity : 90; Tablet; Not Available Not Available Not Available Vitamin D3 1 daily 04/18 completed Not Available Not Available Not Available metformin two times daily 04/15 completed 436; Recorded 04/16/20 22 10:06AM by Carmenza Condon LPN (Authori zed through Manjinder Nino MD), Annotati on/Adden dum; Mail Order Quantity : 180 Tablet; Mail Order Days: 90 Days; Refill Quantity : 180; Tablet; Not Available Not Available Not Available Januvia 100 mg tablet TAKE 1 TABLET EVERY DAY 2024 active Not Available Not Available Not Avai lable Accu-Chek Linkassis t Insertion Device two times daily 04/15 completed 436; Recorded 04/16/20 22 10:03AM by Carmenza Condon LPN (Authori zed through Manjinder Nino MD), Annotati on/Add dum; Mail Order Quantity : 1 Each; [...] Not Available Not Available Not Available Vitals None Recorded Social History Question Answer Notes LastModified by Organizat ion Details LastModified Time Tobacco Smoking Status Never Smoker CARMENZA altamirano, [facility] 10/13/2022 10:54:32 What Was The Date Of Your Most Recent Tobacco Screening? 11/25/2024 [email or web address] Information not available 11/25/2024 Sex: Unknown Functional Status Question Answer Note LastModified by Organizat ion Details LastModified Time Do you use any illicit or recreational drugs? No [email or web address] Information not available 10/13/2022 Do you or have you ever used any other forms of tobacco or nicotine? No Information not available 04/15/2023 What is your level of alcohol consumption? None [email or web address] Information not available 10/13/2022 Do you or have you ever used any nicotine-free cigarettes, vape, or chewing tobacco? No [email or web address] Information not available 04/19/2025 Mental Status None recorded. Family History Relationship Description Onset Age of this Age Resolved Age Notes LastModified by Organization Details LastModified Time Mother Myocardial infarction age 51-com plicat ions from DM [email or web address] Not available 11/13/2022 11:07:20 Mother Essential hypertension [email or web address] Not available 19:21:10 Father Essential hypertension [email or web address] Not available 19:21:10 Medical History Condition Response Diabetes Y High Cholesterol Y Hypertension Y Gynecological HistoryNo gynecological history recorded. Obstetrics History GPAL:G 0 P 0 0 0 0 Immunizations Vaccine Type Date Status Note Provider Nam e and Address Organization Details Recorded Time Influenza, adjuvanted, quadrivalent, PF 3 completed CARMENZA altamirano, [facility] 06/09/2023 14:24:46 COVID-19, mRNA, LNP-S, PF, 50 mcg/0.5 mL 4 completed CARMENZA altamirano [facility] 04/18/2024 11:52:37 Influenza, high-dose, trivalent, PF 4 completed CARMENZA altamirano [facility] 04/18/2024 11:52:37 Influenza, high-dose, trivalent, PF 5 completed Not Available Critical access hospital 04/19/2025 13:43:17 Influenza, high-dose, quadrivalent, PF 1 completed CARMENZA CONDON null, [facility] 06/09/2023 14:19:57 Influenza, high-dose, quadrivalent, PF 2 completed CARMENZA CONDON null, [facility] 06/09/2023 14:19:57 COVID-19, mRNA, LNP-S, PF, 100 mcg/0.5mL dose or 50 mcg/0.25mL dose 1 completed CARMENZA altamirano, [facility] 06/09/2023 14:19:57 COVID-19, mRNA, LNP-S, PF, 100 mcg/0.5mL dose or 50 mcg/0.25mL dose 1 completed CARMENZA altamirano, [facility] 06/09/2023 14:19:57 COVID-19, mRNA, LNP-S, PF, 100 mcg/0.5mL dose or 50 mcg/0.25mL dose 1 completed CARMENZA altamirano, [facility] 06/09/2023 14:19:57 Pneumococcal conjugate PCV20, polysaccharide [id number] conjugate, adjuvant, PF 2 completed CARMENZA CONDON null, [facility] 06/09/2023 14:19:57 COVID-19, mRNA, LNP-S, bivalent, PF, 50 mcg/0.5 mL or 25mcg/0.25 mL dose 2 completed CARMENZA altamirano, [facility] 06/09/2023 14:19:57 zoster live 0 completed CARMENZA altamirano, [facility] 06/09/2023 14:24:47 Tdap 5 completed CARMENZA CONDON null, [facility] 06/09/2023 14:24:47 zoster live 9 completed CARMENZA CONDON null, [facility] 06/09/2023 14:24:47 zoster live 9 completed CARMENZA CONDON null, [facility] 06/09/2023 14:24:47 Pneumococcal conjugate PCV 13 1 completed CARMENZA altamirano, [facility] 06/09/2023 14:24:47 Influenza, split virus, trivalent, preservative 0 completed CARMENZA altamirano, [facility] 06/09/2023 14:24:47 Influenza, split virus, trivalent, preservative 8 completed CARMENZA altamirano, [facility] 06/09/2023 14:24:47 Influenza, split virus, trivalent, preservative 1 completed CARMENZA altamirano, [facility] 06/09/2023 14:24:47 Past Encounters Encounter ID Performer Location Encounter Start Date Encounter Closed Date Diagnosis/Indication Diagnosis SNOMED-CT Code Diagnosis ICD10 Code Diagnosis IMO Codes Diagnosis Note [id number] Manjinder Nino MD [facility] [address] [place] [address] 04/12/2025 09:15:20 04/13/2025 10:15:08 Essential hypertension 08992246 I10 Type 2 shira betes mellitus 45020687 E11.69 60449049 Health Concerns Section Related Observation LastModified by Organization Detai ls LastModified Time None Recorded Concern Status LastModified by Organization Details LastModified Time None Recorded Payers Encounter Date Sequence Insurance Name Policy Number Policy Edwards Covered Member ID Edwards Member ID Guarantor Name 04/12/2025 1 [employer] (MEDICARE REPLACEMENT/A DVANTAGE - PPO) Mahendra Lucia [id number] Mahendra Lucia 04/12/2025 2 [place] Mahendra Lucia [id number] Mahendra Lucia OBGyn Episode No OBEpisode recorded.
--- OUTSIDE RECORDS SUMMARY | 2025-04-30 20:49 | XMS_ITS | Clinical Summary ---
[facility] Organization [facility] Address [address] [place]: [place] [id number] Care Team Providers Care Personnel And Payroll Technician Name Role Phone Unavailable Primary Care Provider Unavailabl e Allergies Active Allergy Reactions Criticality Noted Date Comments Penicillins Rash Low 01/13/2018 Medications SITagliptin phosphate (JANUVIA) 100 mg Tablet Take 100 mg by mouth daily with breakfast. 01/13/2018 Active empagliflozin (JARDIANCE ORAL) Take by mouth. 01/13/2018 Active metoprolol tartrate (LOPRESSOR) 100 mg tablet Take 100 mg by mouth 2 times daily. 01/13/2018 Active metFORMIN (GLUCOPHAGE) 500 mg tablet Take 500 mg by mouth 2 times daily with meals. 01/13/2018 Active atorvastatin (LIPITOR) 10 mg tablet Take 10 mg by mouth late in the day. 01/13/2018 Active lisinopriL (PRINIVIL) 5 mg tablet Take 5 mg by mouth daily. 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 Gender Identity Not on file Sexual Orientation Not on file Last Filed Vital Signs Vital Sign Reading Time Taken Comments Blood Pressure 122/76 04/13/2019 1:31 PM PORTABLE SAWMILL OPERATOR Pulse 66 04/13/2019 1:31 PM PORTABLE SAWMILL OPERATOR Temperature 36.8 C (98.3 F) 04/13/2019 1:31 PM PORTABLE SAWMILL OPERATOR Respiratory Rate - - Oxygen Saturation - - Inhaled Oxygen Concentration - - Weight 73.2 kg (161 lb 6.4 oz) 04/13/2019 1:31 P M PORTABLE SAWMILL OPERATOR Height 158.8 cm (5' 2.5 ) 04/13/2019 1:31 PM PORTABLE SAWMILL OPERATOR Body Mass Index 29.05 04/13/2019 1:31 PM PORTABLE SAWMILL OPERATOR Plan of Treatment Health Maintenance Due Date [...] 12/22/2003 ZOSTER VACCINE (1 of 2) 12/22/2003 DIABETES ANNUAL RETINAL EXAM 09/10/2018 09/10/2017, 09/10/2017 BREAST CANCER SCREENING 09/24/2018 09/25/19 18, 09/20/2015, 09/18/2014 DIABETES HBA1C Q 6 MONTHS 10/04/20182017, 12/01/2017, 07/29/2017, Additional history exists OSTEOPOROSIS SCREENING 09/19/2020 09/20/2015 INFLUENZA VACCINE (#1) 2024
--- OUTSIDE RECORDS SUMMARY | 2025-04-30 20:49 | XMS_ITS | Data Portability ---
Author Organization [facility] Parvez Jaquez [facility] Address [address] [address] Care Team Providers Care Tree Wrapper Name Role Phone MANJINDER LAWRENCE Primary Care Provider GREGORY SPENCE Referring Provider Assessment Encounter Date Assessment Date Assessment LastModified by Organization Details LastModified Time 10/17/2024 10/17/2024 she continues to follow with gynecology. [email or web address] Not available 10/17/2024 14:19:25 Plan of Treatment Reminders Order Date Submit Date Provider Last Modified By Organization Details Last Modified Time Details Appointments OFFICE VISIT 15 2025 12:45P M Manjinder Lawrence MD Not available Not available Not available Lab microalbu min/creat inine, mass ratio, urine 2024 025 [facility], [address] [facility] [address], [address] [place], [address], 04/13/2025 10:38:36 hemoglobi n A1C/hemog lobin total, QN, blood 2024 025 [facility], [address], [address], [place], [address], 04/12/2025 09:50:19 CMP, serum or plasma 2024 025 [facility], [address], [address], [place], [address], 04/12/2025 10:29:22 CBC 2024 025 [facility], [address], [address], [place], [address], 04/12/2025 10:23:42 CBC 2024 025 [facility], [address], [address], [place], [address], 10/10/2024 09:28:56 microalbu min/creat inine, mass ratio, urine 2024 025 [place] [employer] [facility], [address], [address] [place], [address], 10/11/2024 08:33:52 hemoglobi n A1C/hemog lobin total, QN, blood 2024 025 [facility], [address], [address], [place], [address], 10/10/2024 09:42:02 CMP, serum or plasma 2024 025 [facility], [address], [address], [place], [address], 10/10/2024 10:10:44 lipid panel, blood 2024 025 [facility], [address], [place], [address], 10/10/2024 10:10:46 Referral None recorded. Procedures None recorded. Surgeries None recorded. Imaging None recorded. Medication Orders prednison e 20 mg tablet 2024 025 [id number], [address], [address], [place], [address], 12/09/2024 05:01:30 Patient TargetsNo targets recorded. Patient InstructionsNo instructions recorded. Reason for Referral None Reported. Results Created Date Observation Date Name Description Value Unit Range Abnormal Flag Note LastModifiedBy Organization Detail LastModifiedTime 10/11/1910/10/2024 CBC WBC 7.5 x10 4.0-10 .5 Not Available [facility] [address], [place], [address], 10/10/2024 09:28:56 10/11/1910/10/2024 CBC RBC 4.06 x10 3.50-5 .50 Not Available [facility] [address] [facility] [address], [place], [address], 10/10/2024 09:28:56 10/11/1910/10/2024 CBC HGB 12.6 g/dL 12.0-1 6.0 Not Available [facility] [address] [facility] [address], [place], [address], 10/10/2024 09:28:56 10/11/1910/10/2024 CBC HCT 38.9 % 37.0-4 7.0 Not Available [facility] [address] [facility] [address], [place], [address], 10/10/2024 09:28:56 10/11/1910/10/2024 CBC MCV 95.8 fL 80.0-9 9.9 Not Available [facility] [address] [facility], [place], [address], 10/10/2024 09:28:56 10/11/1910/10/2024 CBC MCH 31.0 pg 27.0-3 2.0 Not Available [facility] [address] [facility], [place], [address], 10/10/2024 09:28:56 10/11/1910/10/2024 CBC MCHC 32.4 g/dL 32.0-3 6.0 Not Available [facility] [address] [facility] [facility], [place], [address], 10/10/2024 09:28:56 10/11/1910/10/2024 CBC RDW 13.6 % 11.5-1 4.5 Not Available [facility] [address] [facility], [place], [address], 10/10/2024 09:28:56 10/11/1910/10/2024 CBC plt 217.5 x10 140.0- 451.0 Not Available [facility] [address] [facility] 1, [place], [address], 10/10/2024 09:28:56 10/11/1910/10/2024 CBC lymphocytes % 23.4 % 20.0-5 0.0 Not Available [facility] [address] [facility], [place], [address], 10/10/2024 09:28:56 10/11/1910/10/2024 CBC granulcytes % 66.0 % 30.0-7 0.0 Not Available [facility] [address] [facility], [place], [address], 10/10/2024 09:28:56 10/11/1910/10/2024 CBC monocytes % 8.7 % 2.0-[address] [facility] [address] [facility], [place], [address], 10/10/2024 09:28:56 10/11/1910/10/2024 CBC granulcytes# 5.0 x10 Not Elvia ilable [facility] [address] [facility] [address], [place], [address], 10/10/2024 09:28:56 10/11/1926 1010/10/2024 CBC lymphocytes # 1.8 x10 Not Available [facility] [address] [address], [place], [address], 10/10/2024 09:28:56 10/11/19 25 10/10/2024 CBC monocytes # 0.7 x10 Not Avai lable [facility] [address] [address], [place], [address], 10/10/2024 09:28:56 10/11/19 25 10/10/2024 HBA1C hemaglobin A1C 6.0 4.2-6. 5 Not Available [facility] [address] [facility] [address] [address], [place], [address], 10/10/2024 09:42:02 10/11/1910/10/2024 CMP (FEMA LE) glucose 114.0 mg/dL 60.0-9 9.0 high Not Available [facility] [address] [facility] [address] [address], [place], [address], 10/10/2024 10:10:44 10/11/19 25 10/10/2024 CMP (FEMA LE) BUN (blood urea nitrogen) 15.0 mg/dL 10.0-2 6.0 Not Available [facility] [address] [address], [place], [address], 10/10/2024 10:10:44 10/11/19 25 10/10/2024 CMP (FEMA LE) creatinine (serum) 0.9 mg/dL 0.4-1. 5 Not Available [facility] [address] [facility] [address] [address], [place], [address], 10/10/2024 10:10:44 10/11/19 25 10/10/2024 CMP (FEMA LE) BUN/creatini ne ratio 16.67 ratio Not Available [facility] [address] [facility] [address], [place], [address], 10/10/2024 10:10:44 10/11/19 25 10/10/2024 CMP (FEMA LE) eGFR calculated 65.8 Not Available [facility] [address] [facility] [address], [place], [address], 10/10/2024 10:10:44 10/11/19 25 10/10/2024 CMP (FEMA LE) total protein 7.2 g/dL 6.0-8. 5 Not Available [facility] [address] [facility] [address] [facility], [place], [address], 10/10/2024 10:10:44 10/11/19 25 10/10/2024 CMP (FEMA LE) total bilirubin 0.8 mg/dL 0.2-1. 3 Not Available [facility] [address] [facility], [place], [address], 10/10/2024 10:10:44 10/11/19 25 10/10/2024 CMP (FEMA LE) albumin 4.3 g/dL 3.5-5. 5 Not Available [facility] [address] [facility], [place], [address], 10/10/2024 10:10:44 10/11/1910/10/2024 CMP (FEMA LE) globulin 2.9 calc Not Available [facility] [address] [facility] [address] [facility], [place], [address], 10/10/2024 10:10:44 10/11/1910/10/2024 CMP (FEMA LE) AST (SGOT) 20.0 U/L 0.0-46 .0 Not Available [facility] [address] [facility], [place], [address], 10/10/2024 10:10:44 10/11/19 25 10/10/2024 CMP (FEMA LE) altv (SGPT) 18.0 U/L 13.0-6 9.0 normal Not Available [facility] [address] [facility] [address], [place], [address], 10/10/2024 10:10:44 10/11/19 25 10/10/2024 CMP (FEMA LE) A/G ratio 1.5 ratio Not Available [facility] [address] [facility] [address], [place], [address], 10/10/2024 10:10:44 10/11/19 25 10/10/2024 CMP (FEMA LE) ALP phos 64.0 U/L 30.0-1 40.0 normal Not Available [facility] [address] [facility] [address], [place], [address], 10/10/2024 10:10:44 10/11/19 25 10/10/2024 CMP (FEMA LE) calcium 9.6 mg/dL 8.4-10 .5 Not Available [facility] [address] [address], [place], [address], 10/10/2024 10:10:44 10/11/19 25 10/10/2024 CMP (FEMA LE) sodium 141.0 mmol/ L 136.0- 145.0 Not Available [facility] [address] [facility] 1, [place], [address], 10/10/2024 10:10:44 10/11/19 25 10/10/2024 CMP (FEMA LE) potassium 3.9 mmol/ L 3.5-5. 1 Not Available [facility] [address] [address], [place], [address], 10/10/2024 10:10:44 10/11/19 25 10/10/2024 CMP (FEMA LE) chloride 107.0 mmol/ L 98.0-1 10.[address] [facility] [address] [facility] [address], [place], [address], 10/10/2024 10:10:44 10/11/19 25 10/10/2024 CMP (FEMA LE) C02 26.0 mmol/ L 22.0-3 1.0 Not Available [facility] [address] [facility] 1, [place], [address], 10/10/2024 10:10:44 10/11/19 25 10/10/2024 CMP (FEMA LE) anion gap 8.0 calc Not Available [facility] [address] [address], [place], [address], 10/10/2024 10:10:44 10/11/19 25 10/10/2024 CMP (FEMA LE) osmolality 292.7 calc Not Available [facility] [address] [address], [place], [address], 10/10/2024 10:10:44 10/11/19 25 10/10/2024 LIPID PROFI LE (FEMA LE) cholesterol 116.0 mg/dL 0.0-20 0.0 Not Available [facility] [address] [address], [place], [address], 10/10/2024 10:10:46 10/11/19 25 10/10/2024 LIPID PROFI LE (FEMA LE) trig 94.0 mg/dL 0.0-15 0.0 Not Available [facility] [address] [address], [place], [address], 10/10/2024 10:10:46 10/11/19 25 10/10/2024 LIPID PROFI LE (FEMA LE) HDL - direct 48.0 mg/dL >40.0 Not Available [facility] [address] [address], [place], [address], 10/10/2024 10:10:46 10/11/19 25 10/10/2024 LIPID PROFI LE (FEMA LE) VLDL - direct 18.8 mg/dL Not Available [facility] [address] [facility] [address], [place], [address], 10/10/2024 10:10:46 10/11/19 25 10/10/2024 LIPID PROFI LE (FEMA LE) LDL - direct 49.2 mg/dL 0.0-13 0.0 Not Available [facility] [address] [facility] [address], [place], [address], 10/10/2024 10:10:46 10/11/19 25 10/11/2024 ALBUM IN, RANDO M URINE W/CRE ATINI NE creatinine, random urine 118 mg/dL 20-275 normal Not Available [facility] [address] [place], [address], 10/11/2024 08:33:52 10/11/19 25 10/11/2024 ALBUM IN, RANDO M URINE W/CRE ATINI NE albumin, urine 1.2 mg/dL see note: normal Refer ence Range : Refer ence Range Not estab lishe d Not Available [facility] [address] [place], [address], 10/11/2024 08:33:52 10/11/19 25 10/11/2024 ALBUM IN, RANDO M URINE W/CRE ATINI NE albumin/crea tinine ratio, random urine 10 mg/g_ creat <30 normal The ADA defin [...] a diagn ostic categ ory. Not Available [employer] [facility] [address] [address], [place], [address], 10/11/2024 08:33:52 04/12/20 25 04/12/2025 HBA1C hemaglobin A1C 6.2 4.2-6. 5 Not Available [facility] [address], [place], [address], 04/12/2025 09:50:19 04/12/2004/12/2025 CBC WBC 9.2 x10 4.0-10 .5 Not Available [facility] [address], [place], [address], 04/12/2025 10:23:42 04/12/20 25 04/12/2025 CBC RBC 4.28 x10 3.50-5 .50 Not Available [facility] [address], [place], [address], 04/12/2025 10:23:42 04/12/20 25 04/12/2025 CBC HGB 13.1 g/dL 12.0-1 6.0 Not Available [facility] [address], [place], [address], 04/12/2025 10:23:42 04/12/20 25 04/12/2025 CBC HCT 40.8 % 37.0-4 7.0 Not Available [facility] [address], [place], [address], 04/12/2025 10:23:42 04/12/20 25 04/12/2025 CBC MCV 95.3 fL 80.0-9 9.9 Not Available [facility] [address], [place], [address], 04/12/2025 10:23:42 04/12/20 25 04/12/2025 CBC MCH 30.5 pg 27.0-3 2.0 Not Available [facility] [address] [facility] 1, [place], [address], 04/12/2025 10:23:42 04/12/20 25 04/12/2025 CBC MCHC 32.0 g/dL 32.0-3 6.0 Not Available [facility] [address] [facility] [address] [facility], [place], [address], 04/12/2025 10:23:42 04/12/20 25 04/12/2025 CBC RDW 13.5 % 11.5-1 4.5 Not Available [facility] [address] [facility] [address] 1, [place], [address], 04/12/2025 10:23:42 04/12/20 25 04/12/2025 CBC plt 229.3 x10 140.0- 451.0 Not Available [facility] [address] [facility] [address] [facility], [place], [address], 04/12/2025 10:23:42 04/12/20 25 04/12/2025 CBC lymphocytes % 21.1 % 20.0-5 0.0 Not Available [facility] [address] [facility] [address] [facility], [place], [address], 04/12/2025 10:23:42 04/12/20 25 04/12/2025 CBC granulcytes % 69.0 % 30.0-7 0.0 Not Available [facility] [address] [facility] [address] 1, [place], [address], 04/12/2025 10:23:42 04/12/20 25 04/12/2025 CBC monocytes % 7.5 % 2.0-16 .0 Not Available [facility] [address] [facility] 1, [place], [address], 04/12/2025 10:23:42 04/12/20 25 04/12/2025 CBC granulcytes# 6.3 x10 Not Elvia ilable [facility] [address] [facility] [address], [place], [address], 04/12/2025 10:23:42 04/12/20 25 04/12/2025 CBC lymphocytes # 1.9 x10 Not Available [facility] [address] [facility] [address], [place], [address], 04/12/2025 10:23:42 04/12/20 25 04/12/2025 CBC monocytes # 0.7 x10 Not Avai lable [facility] [address] [facility] [address], [place], [address], 04/12/2025 10:23:42 04/12/20 25 04/12/2025 CMP (FEMA LE) glucose 97.0 mg/dL 60.0-9 9.0 Not Available [facility] [address] [facility] [address] 1, [place], [address], 04/12/2025 10:29:22 04/12/20 25 04/12/2025 CMP (FEMA LE) BUN (blood urea nitrogen) 23.0 mg/dL 10.0-2 6.0 Not Available [facility] [address] [facility] [address], [place], [address], 04/12/2025 10:29:22 04/12/20 25 04/12/2025 CMP (FEMA LE) creatinine (serum) 0.8 mg/dL 0.4-1. 5 Not Available [facility] [address] [facility] [address] [facility], [place], [address], 04/12/2025 10:29:22 04/12/20 25 04/12/2025 CMP (FEMA LE) BUN/creatini ne ratio 28.75 ratio Not Available [facility] [address] [facility] [facility], [place], [address], 04/12/2025 10:29:22 04/12/20 25 04/12/2025 CMP (FEMA LE) eGFR calculated 75.2 Not Available [facility] [address] [facility] 1, [place], [address], 04/12/2025 10:29:22 04/12/20 25 04/12/2025 CMP (FEMA LE) total protein 7.2 g/dL 6.0-8. 5 Not Available [facility] [address] [facility] 1, [place], [address], 04/12/2025 10:29:22 04/12/20 25 04/12/2025 CMP (FEMA LE) total bilirubin 0.6 mg/dL 0.2-1. 3 Not Available [facility] [address] [facility] 1, [place], [address], 04/12/2025 10:29:22 04/12/20 25 04/12/2025 CMP (FEMA LE) albumin 4.5 g/dL 3.5-5. 5 Not Available [facility] [address] [facility] 1, [place], [address], 04/12/2025 10:29:22 04/12/20 25 04/12/2025 CMP (FEMA LE) globulin 2.7 calc Not Available [facility] [address] [facility], [place], [address], 04/12/2025 10:29:22 04/12/20 25 04/12/2025 CMP (FEMA LE) AST (SGOT) 24.0 U/L 0.0-46 .0 Not Available [facility] [address] [facility], [place], [address], 04/12/2025 10:29:22 04/12/20 25 04/12/2025 CMP (FEMA LE) altv (SGPT) 21.0 U/L 13.0-6 9.0 normal Not Available [facility] [address] [facility], [place], [address], 04/12/2025 10:29:22 04/12/20 25 04/12/2025 CMP (FEMA LE) A/G ratio 1.7 ratio Not Available [facility] [address] [facility], [place], [address], 04/12/2025 10:29:22 04/12/20 25 04/12/2025 CMP (FEMA LE) ALP phos 66.0 U/L 30.0-1 40.0 normal Not Available [facility] [address] [facility], [place], [address], 04/12/2025 10:29:22 04/12/20 25 04/12/2025 CMP (FEMA LE) calcium 9.8 mg/dL 8.4-10 .5 Not Available [facility] [address] [facility] [facility], [place], [address], 04/12/2025 10:29:22 04/12/20 25 04/12/2025 CMP (FEMA LE) sodium 141.0 mmol/ L 136.0- 145.0 Not Available [facility] [address] [facility] [facility], [place], [address], 04/12/2025 10:29:22 04/12/20 25 04/12/2025 CMP (FEMA LE) potassium 4.4 mmol/ L 3.5-5. 1 Not Available [facility] [address] [facility], [place], [address], 04/12/2025 10:29:22 04/12/20 25 04/12/2025 CMP (FEMA LE) chloride 104.0 mmol/ L 98.0-1 10.0 normal Not Available [facility] [address] [facility] [address], [place], [address], 04/12/2025 10:29:22 04/12/20 25 04/12/2025 CMP (FEMA LE) C02 27.0 mmol/ L 22.0-3 1.0 Not Available [facility] [address] [facility] [address], [place], [address], 04/12/2025 10:29:22 04/12/20 25 04/12/2025 CMP (FEMA LE) anion gap 10.0 calc Not Available [facility] [address] [facility] [address], [place], [address], 04/12/2025 10:29:22 04/12/20 25 04/12/2025 CMP (FEMA LE) osmolality 294.[address] [facility] [address] [facility] [address], [place], [address], 04/12/2025 10:29:22 04/12/20 25 04/13/2025 ALBUM IN, RANDO M URINE W/CRE ATINI NE creatinine, random urine 69 mg/dL 20-275 normal Not Available [facility] [address] [place], [address], 04/13/2025 10:38:36 04/12/20 25 04/13/2025 ALBUM IN, RANDO M URINE W/CRE ATINI NE albumin, urine 0.8 mg/dL see note: normal Refer ence Range : Refer ence Range Not estab lishe d Not Available [facility] [address] [place], [address], 04/13/2025 10:38:36 04/12/20 25 04/13/2025 ALBUM IN, [...] a diagn ostic categ ory. Not Available [address] [place] [address] [place], [address], 04/13/2025 10:38:36 10/18/19 25 07/02/2017 colon oscop y proce dure (PROC ) No observ ation record ed. [email or web address] Not Available 10/18 09:31:20 03/16/20 25 03/15/2025 MAMMO , scree ann, digit al, bilat eral No observ ation record ed. [facility] [address] [place], [address], 04/03/2025 08:21:55 04/24/20 25 04/03/2022 colon oscop y proce dure (PROC ) No observ ation record ed. [email or web address] Not Available 04/24 10:47:50 Result Notes None recorded. Problems Name Problem SNOMED Code Status Onset Date Resolution Date Notes Provider Name and Address Organization Details Recorded Time Uncontro lled type 2 diabetes mellitus 513887665 Completed 202010/09/2020 DIABETES MELLITUS TYPE 2, UNCONTRO LLED - Status is Inactive ; Recorded 10/10/19 9:59AM by Manjinder Lawrence MD, Annotati on/Adden dum; Promoted ; acuity set as *; Not Available [facility] 3 03:13:50 Colonosc opy Completed 202110/17/2024 needs colonosc opy 2022; 04/14/20 9:08AM by Rosemarie Corcoran RN, Office Visit; Promoted ; acuity set as *; Rosemarie altamirano 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orge 5 16:59:04 History of malignan t neoplasm of breast 429178898 Active [address] [facility] 5 16:59:00 Type 2 diabetes mellitus 52291480 Active [address] 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orge 5 10:02:16 Problem Notes None recorded. Procedures Surgical History Date Name Laterality Status Provider Name and Address Organization Details Recorded Time 3 Punch Biopsies, Multiple completed Manjinder Lawrence MD [address] [place] [address], [id number], [facility], GisselLLuigi 11/03/2022 10:30:33 2 colonoscopy completed [facility] 04/19/2025 13:56:20 3 colonoscopy completed [facility] 10/17/2024 09:56:54 Mastectomy completed [facility] 10/13/2022 10:54:51 Imaging Results None recorded. Procedure Notes None recorded. Medical Equipment None Reported. Allergies Allergen ID Allergen Name Allergen Category Reaction Reaction Severity Criticality Documentation Date Start Date Code Code System Note Provider Name and Address Organization Details Recorded Time 4212 Product containin g penicilli n (product) medicatio n Not available Not available Not available 10/13/2022 02027 8001 SNOMED CARMENZA [facility] 3 10:48:06 70115 penicilli n V potassium medicatio n Not available Not available Not available 11/29/2022 5 RxNorm Comme nt: Recor ded 04/14 9:08A M by Rosemarie Corcoran RN, Offic e Visit ; Estella eastman; Fredi villalobos ce: *; Reaso n: Drug aller gy; ; CARMENZA [facility] 3 11:07:49 Medications Name Sig Start Date Stop Date Status Note LastModified by Organization Details LastModified Time atorvasta tin 20 mg tablet TAKE 1 TABLET EVERY DAY 2024 active Not Available Not Available Not Avai lable Vitamin B-12 100 mcg tablet daily 04/18 completed 0; Recorded 04/14/20 22 9:08AM by Rosemarie Corcoran RN, Office Visit; [...] 22 10:05AM by Carmenza Condon LPN (Authori lanid through Manjinder Lawrence MD), Annotati on/Adden dum; Mail Order Quantity [...] Carmenza Condon LPN (Authori makeda through Manjinder Lawrence MD), Annotati on/Adden dum; Mail Order Quantity [...] Carmenza Condon LPN (Authori zed through Manjinder Lawrence MD), [place] ; Mail Order Quantity : 90 Tablet; Mail Order Days: 90 Days; Refill Quantity : 90; Tablet; Not Available Not Available Not Available Vitamin D3 1 daily 04/18 completed Not Available Not Available Not Available metformin two times daily 04/15 completed 436; Recorded 04/16/20 10:06AM by Carmenza Condon LPN (Authori zed through Manjinder Lawrence MD), [place] ; Mail Order Quantity : 180 Tablet; Mail Order Days: 90 Days; Refill Quantity : 180; Tablet; Not Available Not Available Not Available Januvia 100 mg tablet TAKE 1 TABLET EVERY DAY 2024 active Not Available Not Available Not Avai lable Accu-Chek Linkassis t Insertion Device two times daily 04/15 completed 436; Recorded 04/16/20 10:03AM by Carmenza Condon LPN (Authori zed through Manjinder Lawrence MD), [place] ; Mail Order Quantity : 1 Each; Refill [...] and Address Organization Details Last Updated DateTime 5 160.02 cm 28.7 kg/m2 64431.9 6 g 97.7 [degF] 69 /min 96 % 126/70 mm[Hg] Rosemarie Cameron [facility] 5 14:01:08 Date Recorded Body height Body mass index (BMI) Body weight Body temperature Heart rate Oxygen saturation Systolic And Diastolic Provider Name and Address Organization Details Last Updated DateTime 5 160.02 cm 27.4 kg/m2 04905.0 2 g 98.4 [degF] 77 /min 95 % 122/74 mm[Hg] Jennifer Bass [facility] 5 15:15:19 Date Recorded Body height Body mass index (BMI) Body weight Body temperature Heart rate Oxygen saturation Systolic And Diastolic Provider Name and Address Organization Details Last Updated DateTime 5 160.02 cm 27.1 kg/m2 55299.6 3 g 97.7 [degF] 75 /min 97 % 132/70 mm[Hg] CARMENZA CONDON [facility] 5 14:01:06 Social History Question Answer Notes LastModified by [employer] Details LastModified Time Tobacco Smoking Status Never Smoker CARMENZA CONDON [facility] 10/13/2022 10:54:32 What Was The Date Of Your Most Recent Tobacco Screening? 11/25/2024 [email or web address] Information not available 11/25/2024 Sex: Unknown Functional Status Question Answer Note LastModified by [employer] Details LastModified Time Do you use any illicit or recreational drugs? No [email or web address] Information not available 10/13/2022 Do you or have you ever used any other forms of tobacco or nicotine? No [email or web address] Information not available 04/15/2023 What is your level of alcohol consumption? None [email or web address] Information not available 10/13/2022 Do you or have you ever used any nicotine-free cigarettes, vape, or chewing tobacco? No [email or web address] Information not available 04/19/2025 Mental Status None recorded. Family History Relationship Description Onset Age of this Age Resolved Age Notes LastModified by Organization Details LastModified Time Mother Myocardial infarction age 51-com plicat ions from DM [email or web address] Not available 11/13/2022 11:07:20 Mother Essential hypertension [email or web address] Not available 19:21:10 Father Essential hypertension Not available 19:21:10 Medical History Condition Response Diabetes Y Hypertension Y High Cholesterol Y Gynecological HistoryNo gynecological history recorded. Obstetrics History GPAL:G 0 P 0 0 0 0 Immunizations Vaccine Type Date Status Note Provider Nam e and Address Organization Details Recorded Time Influenza, adjuvanted, quadrivalent, PF 3 completed CARMENZA altamirano, [facility] 06/09/2023 14:24:46 COVID-19, mRNA, LNP-S, PF, 50 mcg/0.5 mL 4 completed CARMENZA altamirano, [facility] 04/18/2024 11:52:37 Influenza, high-dose, trivalent, PF [address] [facility] 04/18/2024 11:52:37 Influenza, high-dose, trivalent, PF 5 completed Not Available [facility] 04/19/[facility] 13:43:17 Influenza, high-dose, quadrivalent, PF [address] [facility] 06/09/2023 14:19:57 Influenza, high-dose, quadrivalent, PF [address] [facility] 06/09/2023 14:19:57 COVID-19, mRNA, LNP-S, PF, 100 mcg/0.5mL dose or 50 mcg/0.25mL dose 1 completed CARMENZA altamirano, [facility] 06/09/2023 14:19:57 COVID-19, mRNA, LNP-S, PF, 100 mcg/0.5mL dose or 50 mcg/0.25mL dose 1 completed CARMENZA altamirano, [facility] 06/09/2023 14:19:57 COVID-19, mRNA, LNP-S, PF, 100 mcg/0.5mL dose or 50 mcg/0.25mL dose 1 completed CARMENZA altamirano, [facility] 06/09/2023 14:19:57 Pneumococcal conjugate PCV20, polysaccharide JDC530 conjugate, adjuvant, PF 2 completed CARMENZA altamirano, [facility] 06/09/2023 14:19:57 COVID-19, mRNA, LNP-S, bivalent, PF, 50 mcg/0.5 mL or 25mcg/0.25 mL dose 2 completed CARMENZA altamirano, [facility] 06/09/2023 14:19:57 zoster live 0 completed CARMENZA altamirano, [facility] 06/09/2023 14:24:47 Tdap 5 completed CARMENZA altamirano, [facility] 06/09/2023 14:24:47 zoster live 9 completed CARMENZA altamirano, [facility] 06/09/2023 14:24:47 zoster live 9 completed CARMENZA altamirano, [facility] 06/09/2023 14:24:47 Pneumococcal conjugate PCV 13 1 completed CARMENZA altamirano, [facility] 06/09/2023 14:24:47 Influenza, split virus, trivalent, preservative 0 completed CARMENZA altamirano, [facility] 06/09/2023 14:24:47 Influenza, split virus, trivalent, preservative 8 completed CARMENZA altamirano, [facility] 06/09/2023 14:24:47 Influenza, split virus, trivalent, preservative 1 completed CARMENZA altamirano, [facility] 06/09/2023 14:24:47 Past Encounters Encounter ID Performer Location Encounter Start Date Encounter Closed Date Diagnosis/Indication Diagnosis SNOMED-CT Code Diagnosis ICD10 Code Diagnosis IMO Codes Diagnosis Note [id number] Manjinder Lawrence MD [facility] ([facility]) [address] [place] [address] [phone] 5 10/13/2022 10:19:09 10/13/2022 16:38:02 Diabetes mellitus 07901076 E11.9 Hyperlipidemia 43574122 E78.5 Essential hypertension 25506388 I10 Skin lesion 98929782 L98 .9 [id number] Manjinder Lawrence MD [facility]) [address] [place] [address] [phone] 5 11/03/2022 09:54:21 11/03/2022 11:04:10 Change in skin lesion 506177894 L98.9 ulcerated, enlargingb unch bx X 2 performedw ill initiate referral for definitive removal [id number] Manjinder Lawrence MD [facility] ([facility]) [address] [place] [address] [phone] 5 11/10/2022 10:28:35 11/19/2022 15:56:12 Removal of suture 27999025 Z48.02 [id number] ALESSANDRO BLANCA [facility] ([facility]) [address] [place] [address] [phone] 5 11/13/2022 10:53:10 11/13/2022 12:02:15 Adult health examination 650639387 Z00.00 Screening for malignant neoplasm of colon 594548330 Z12.11 Colonoscop y 04/2022 Screening mammography 24 906408 Z12.31 Z90.11 Due January 2023 Type 2 shira betes mellitus 67638077 E11.[address] Branden hennessy. [id number] Manjinder Lawrence MD [facility] ([facility]) [address] [place] [address] [phone] 5 04/15/2023 10:44:01 04/15/2023 14:15:51 Diabetes mellitus 09957523 E11.9 eye exam utdfoot exam today Foot callus 062032555 L8 4 Acquired d eformity of ankle AND/OR foot 87948090 M21.969 Malignant neoplasm of breast 200169843 C50.011 mammogram utd. has had her female checkup as well for her VA[facility]. she will f/u in january and understand s the risks ofnot doing so. [id number] Manjinder Lawrence MD [facility] ([facility]) [address] [place] [address] [phone] 5 06/09/2023 13:57:52 06/09/2023 18:22:59 Essential hypertension 32901770 I10 Hyperlipidemia 77203434 E78.5 Type 2 shira betes mellitus 48477662 E11.36 Wheezing 73868537 R06.2 History of malignant neoplasm of breast 853425844 Z85.3 [id number] Manjinder Lawrence MD [facility] ([facility]) [address] [place] [address] [phone] 5 10/08/2023 08:02:59 10/09/2023 10:29:38 Essential hypertension 12902667 I10 Hyperlipidemia 03212060 E78.5 Type 2 shira betes mellitus 14579327 E11.36 [id number] Manjinder Lawrence MD [facility] ([facility]) [address] [place] [address] [phone] 5 10/16/2023 10:48:14 10/16/2023 11:48:09 Hypertensive disorder 53031299 I10 Type 2 shira betes mellitus without complication 616378906 E11.9 [id number] Arsenio Voss MD [facility] ([facility]) [address] [place], [place] [phone] 5 01/14/2024 16:18:13 01/14/2024 17:15:20 Pain in left foot 6162982001 44177 M79.672 Strays were obtained of the left foot. No fracture was noted on review of the images Contusion of left foot 0046384543 9195758 S90.32XA Discussed RICE. Follow-up with PCP if symptoms are not improving. [id number] Manjinder Lawrence MD [facility] ([facility]) [address] [place] [address] 5 04/11/2024 08:22:36 04/11/2024 08:30:38 Essential hypertension 62837387 I10 Type 2 shira betes mellitus 12531185 E11.36 [id number] Manjinder Lawrence MD [facility] ([facility]) [address] [place] [address] 5 04/18/2024 11:48:15 04/18/2024 12:22:08 History of malignant neoplasm of breast 900820707 Z85.3 Type 2 shira betes mellitus 49038304 E11.36 Essential hypertension 60918851 I10 [id number] ALESSANDRO JESSICA [facility] ([facility]) [address] [place], [place] [address] 07/30/2024 14:55:36 07/31/2024 07:34:57 Pain of right knee joint 4953166677 80097 M25.561 May continue to use biofreeze as needed. follow up with PCP if no improvemen t after prednisone course. Patient advised to RTC if any new or worsening symptoms occur like increased pain, redness, or warmth. [id number] Manjinder Lawrence MD [facility] ([facility]) [address] [place], [place] [address] 10/10/2024 08:38:25 10/11/2024 09:47:26 Essential hypertension 96868492 I10 Hyperlipidemia 68219739 E78.5 Type 2 shira betes mellitus 47437470 E11.36 Osteoporosis 39509737 M8 1.0 [id number] Manjinder Lawrence MD [facility] ([facility]) [address] [place] [address] [phone] 5 10/17/2024 13:03:00 10/17/2024 16:21:29 Essential hypertension 08071711 I10 Hyperlipidemia 72020222 E78.5 Type 2 shira betes mellitus 15462893 E11.69 19875320 Foot callus 011899141 L8 4 430195 Deformity of foot 060485 004 M21.961 M21.962 [id number] ALESSANDRO CHATMAN [facility] ([facility]) [address] [place] [address] [phone] 5 11/25/2024 15:06:25 11/25/2024 18:53:53 Acute upper respiratory infection 42538916 J06.9 79971 Discussed use of otc medication s for symptom management .Push oral fluids and rest.If you develop fever, sob, or start feeling worse then return for re-evaluat ion. [id number] Manjinder Lawrence MD [facility] ([facility]) [address] [place] [address] [phone] 5 04/12/2025 09:15:20 04/13/2025 10:15:08 Essential hypertension 58453763 I10 Type 2 shira betes mellitus 09462229 E11.69 [id number] [id number] Manjinder Lawrence MD [facility] ([facility]) [address] [place] [address] [phone] 5 04/19/2025 13:42:56 04/20/2025 17:13:30 Health Concerns Section Related Observation LastModified by Organization Detai ls LastModified Time None Recorded Concern Status LastModified by Organization Details LastModified Time None Recorded Advance Directives Directive None Recorded Payers Insurance Date Sequence Insurance Name Policy Number Policy Edwards Covered Member ID Edwards Member ID Guarantor Name 04/12/2025 [place] [facility] Mahendra Lucia [id number] Mahendra Lucia 04/12/2025 2 [place] Mahendra Lucia [id number] Mahendra Lucia 04/12/2025 1 [facility] Mahendra Lucia [id number] Dellasajan Seven Lucia 04/24/2025 1 [employer] (MEDICARE REPLACEMENT/A DVANTAGE - PPO) Natashacoleman Lucia [id number] Mahendra Seven Rea Notes Date Note Type Note Provider Name and Address Organization Details Recorded Time 5 text/html DiabetesReported by PatientHPIFor control, patient reportsworsened since last visitbut reportshemoglobin a1c has been less than 7andhemoglobin a1c goal is less than 7. For associated symptoms, patient reportscalluses on feetbut reportsno sweats,no increased thirst,no increased appetite,no increased urination,no numbness of feet, andno paresthesias. For duration, patient reportschronic. For compliance, patient reportscompliant with medicationsandcompliant with follow-up visits. For self care, patient reportsmonitoring glucose 2 times per day(92 is the lowest. 150 is the highest. mostly in the 120-140s). For review finger sticks, (120-150).Complications and Co-morbiditiesFor chronic complications, patient reportsdiabetic nephropathy: no,hypertension: yes, andhyperlipidemia: yes. Hypertension IM/FMReported by PatientHPIFor quality, patient reportshere for check-up. For duration, patient reportshtn present for ___ years. For onset/timing, patient reportsgradual onset. For self care, patient reportsnon-smoker. For associated symptoms, patient reportsno shortness of breath,no fatigue,no palpitations, andno chest pain. For severity, (patient reports bp at home is 90s-120s systolic/60-70s). HyperlipidemiaReported by PatientHPIFor duration, patient reportschronic. For risk factors, patient reportsdiabetesandhypertens ion. For control, patient reportsusually well controlledandat goal. For adherence to treatment plan, patient reportsfollows recommended diet. For complications, patient reportsno coronary artery diseaseandno cardiovascular disease.ROS as noted in the HPI Manjinder Lawrence MD [address] [place], [phone], [facility]/17/20[facility] 14:25:25 5 text/html ROS as noted in the HPI walk in ptPt has a cough and headache for 3 days. Denies fever, sob, sputum production. Eating/drinking normally. no otc meds taken for this. ALESSANDRO CHATMAN [address] [place], [address], [facility] 11/28/2024 11:57:30 5 text/html DiabetesReported by PatientHPIFor associated symptoms, [...] disease.ROS as noted in the HPI Manjinder Lawrence MD [address] [place], [phone], [facility] 04/19/2025 14:27:09 OBGyn Episode No OBEpisode recorded.
[2025-04-30 21:07] VITALS: BP 135/69; PULSE 63; TEMP 37; O2SAT 99; BMI 24.9
--- NOTE | 2025-04-30 21:19 | XRR_ITS ---
PROCEDURE INFORMATION: Exam: XR Right Hip Exam date and time: 04/30/2025 10:10 PM Age: 69 years old Clinical indication: Injury or trauma; Blunt trauma (contusions or hematomas); Right; Prior surgery; Surgery date: 6+ months; Surgery type: Appy. Tubal. Csection; Fall in shower. C/O RT hip pain. ; Additional info: Fall; One view pelvis please TECHNIQUE: Imaging protocol: Radiologic exam of the right hip. 375 image(s) are submitted. Views: 2 or 3 views hip with pelvis when performed. COMPARISON: No relevant prior studies available. FINDINGS: Bones/joints: Unremarkable. No acute fracture. Soft tissues: Unremarkable. XR/XR hip RT 2-3V wo/w pel* [id number] IMPRESSION: No acute findings. Bilateral hip joints appear to be symmetrical. Degenerative changes of the lumbar spine and bilateral SI joint.
--- NOTE | 2025-04-30 22:04 | W.ED.FALL ---
HPI - Fall General: Chief Complaint: Fall Stated Complaint: fall in bath. side, back pain Time Seen by Provider: 04/30/25 21:47 Source: patient Mode of arrival: wheelchair Limitations: no limitations History of Present Illness: Patient is a 69-year-old female who presents to ED today with complaint of right hip and right rib pain after falling in the shower earlier today. Patient states she has been able to bear a small amount of weight on the hip since the fall. She denies striking her head or LOC. She does not complain of any shortness of breath or difficulty breathing. She is not complaining of abdominal pain. No neck or back pain. MD complaint: fall Onset (ago): hour(s) Fall from: standing Fall witnessed: no Loss of consciousness: None Prolonged down time: no Symptoms prior to fall: none Context: tripped/slipped Location of injury: chest Severity: mild Associated symptoms-after fall: Reports chest pain (R rib pain); Denies abdominal pain, headache(s), lightheadedness or neck pain Related Data Home Medications ?Medication ?Instructions ?Recorded ?Confirmed atorvastatin 20 mg tablet 20 mg PO DAILY 10/26/19 02/15/24 cholecalciferol (vitamin D3) 25 25 mcg PO DAILY 10/26/19 02/15/24 mcg (1,000 unit) tablet empagliflozin 25 mg tablet 25 mg PO DAILY 10/26/19 02/15/24 (Jardiance) lisinopril 5 mg tablet 5 mg PO DAILY 10/26/19 02/15/24 metformin 500 mg tablet,extended 500 mg PO DAILY 10/26/19 02/15/24 release 24 hr metoprolol tartrate 100 mg tablet 100 mg PO DAILY 10/26/19 02/15/24 sitagliptin phosphate 100 mg 100 mg PO DAILY 10/26/19 02/15/24 tablet (Januvia) aspirin 81 mg tablet,delayed 81 mg PO DAILY 01/22/23 02/15/24 release (Adult Low Dose Aspirin) Previous Rx's ?Medication ?Instructions ?Recorded peg 3350-electrolytes 236 240 ml PO Q10M #4,000 mL 01/22/22 gram-22.74 gram-6.74 gram-5.86 gram solution (Golytely) albuterol sulfate 90 mcg/actuation 2 inh inhalation Q4H PRN shortness 03/01/23 aerosol inhaler of breath or wheezing #6.7 grams azithromycin 500 mg tablet 500 mg PO DAILY 5 days #5 tabs 03/01/23 (Zithromax) prednisone 20 mg tablet 60 mg (3 x 20 mg) PO DAILY 5 days 03/01/23 #15 tabs Allergies Allergy/AdvReac Type Severity Reaction Status Date / Time Penicillins Allergy rash, Verified 04/30/25 21:15 itching Review of Systems Const: Denies: fever(s) Eyes: Denies: change in vision or blurry vision Card: Reports: chest pain (R rib pain); Denies: palpitations, irregular heart rhythm, edema, lightheadedness, syncope or pre-syncope Resp: Denies: dyspnea or chest congestion GI: Denies: abdominal pain Musc: Reports: joint pain (R hip); Denies: neck pain, back pain, extremity pain or extremity swelling Neuro: Denies: headache(s), numbness in extremities, weakness in extremities or sensory changes PFSH ED PFSH: Medical History Hyperlipidemia History of breast cancer (~2002) adjuvant chemo and radiation History of carcinoma in situ of cervix No pertinent past medical history neghx:thyroid, dvt/pe PCP: Titus Lawrence Hypertension Diabetes Vaginal intraepithelial neoplasia II Surgical History History of conization of cervix (~05/10/13) LEEP. Performed by Dr. Resendiz for LANCE-2. History of appendectomy (~2010) Open appendectomy in 2010 History of mastectomy (~2002) Removal of right breast for breast cancer in 2002. History of bilateral tubal ligation (~1978) Performed at time of . History of section, low transverse (~1978) Family History Mother Diabetes Hypertension Stroke Heart disease Social History Smoking and tobacco/nicotine status: never used tobacco/nicotine Alcohol intake: never Substance/Drug Use: never Physical Exam Const: COMMON NORMALS: no acute distress, average body habitus, patient oriented x3, no limitations, healthy appearing, alert and well nourished GENERAL APPEARANCE: cooperative ORIENTATION/CONSCIOUSNESS: Yes awake, Yes oriented to person, Yes oriented to place and Yes oriented to time HENMT: COMMON NORMALS: normocephalic, atraumatic and TM's normal bilaterally HEAD & SCALP: normal to inspection, normocephalic and atraumatic; no Hernandez's sign, no hematoma and no raccoon eyes FACE & SINUS: normal facial exam TYMPANIC MEMBRANE: TM's normal bilaterally MOUTH: other (no intraoral injuries noted) Eye: COMMON NORMALS: Equal, round and reactive pupils present and EOMs intact bilaterally GENERAL EYE: appearance normal, both eyes and all related structures and normal light reflex PUPIL: Yes Equal, round and reactive pupils present DIRECT OPHTHALMOSCOPY: Yes normal light reflex Neck/C-Spine: COMMON NORMALS: full ROM GENERAL: Yes normal visual inspection CERVICAL SPINE: Yes cervical ROM normal, No pain with cervical ROM, No Cervical spine tenderness, No step off deformity and No Paracervical muscle tenderness Chest: COMMONS NORMALS: normal inspection of the chest OTHER: TTP R lateral ribs; no crepitus; normal lung sounds Resp: COMMON NORMALS: normal respiratory effort and clear to auscultation bilaterally AUSCULTATION: clear to auscultation bilaterally Cardio: COMMON NORMALS: regular rate and regular rhythm RATE: regular rate RHYTHM: regular rhythm GI: COMMON NORMALS: Normal to inspection, nondistended, normoactive bowel sounds present, Soft to palpation, non-tender, No hepatosplenomegaly present and no masses INSPECTION: Yes normal to inspection and No abdominal wall ecchymosis AUSCULTATION: Yes normoactive bowel sounds PALPATION: Yes Soft to palpation and Yes No hepatosplenomegaly present Back/Pelvis: COMMON NORMALS: thoracic and lumbar spine normal to inspection, no thoracic nor lumbar tenderness and thoraco-lumbar ROM normal Extremity: COMMON NORMALS: normal to inspection, capillary refill normal, no joint enlargement, no clubbing, cyanosis or edema, no calf tenderness and no pedal edema GENERAL: Yes normal exam except as noted RIGHT LOWER EXTREMITY: Yes hip joint (fairly normal passive ROM ) Right hip: Yes inspection (normal gross inspection of R hip) and Yes neurovascular exam (normal ) Neuro: TATI COMA SCALE: document GCS findings [place] coma scale eye opening: Spontaneous Tati coma scale verbal response: Orientated Tati coma scale motor response: Obey commands Tati coma scale total score: 15 COMMON NORMALS: patient oriented x3, CN's II-XII intact bilaterally, moves all extremities, no focal motor deficits and no sensory deficits noted SENSORIUM/ORIENTATION: Yes alert, Yes oriented to person, Yes oriented to place and Yes oriented to time SPEECH: speech normal GAIT: Yes Normal gait present Skin: COMMON NORMALS: no rashes or lesions noted GENERAL SKIN EXAM: no rashes or lesions noted TRAUMA: no lacerations or abrasions Course Vital Signs: Vital signs: Vital Signs Temperature 98.6 F 04/30/25 21:07 Pulse Rate 63 04/30/25 21:07 Blood Pressure 135/69 04/30/25 21:07 Pulse Oximetry 99 04/30/25 21:07 MDM - Fall Medical Decision Making XRs of the R hip/pelvis obtained as well as R ribs/CXR. These are unremarkable. She was ambulatory here in the emergency department. Patient will be allowed discharge. Return to ED precautions discussed. Otherwise she can follow-up with primary care next week for re-evaluation. Medical Records I reviewed the patient's medical records. Lab Data I reviewed the patient's lab results. Radiology Impressions Hip/Pelvis X-Ray 04/30/25 21:19 IMPRESSION: No acute findings. Bilateral hip joints appear to be symmetrical. Degenerative changes of the lumbar spine and bilateral SI joint. Ribs X-Ray 04/30/25 22:35 IMPRESSION: No acute findings. No right-sided rib fracture seen. All radiology interpretation(s) finalized by discharge Discharge Plan Discharge Patient Disposition: Home Clinical Impression: Fall from slipping, Contusion of right hip, Contusion of rib on right side Condition: Stable Prescriptions: No Action metoprolol tartrate 100 mg tablet 100 mg PO DAILY metformin 500 mg tablet extended release 24 hr 500 mg PO DAILY lisinopril 5 mg tablet 5 mg PO DAILY Jardiance 25 mg tablet 25 mg PO DAILY Januvia 100 mg tablet 100 mg PO DAILY atorvastatin 20 mg tablet 20 mg PO DAILY cholecalciferol (vitamin D3) 25 mcg (1,000 unit) tablet 25 mcg PO DAILY aspirin [Adult Low Dose Aspirin] 81 mg tablet,delayed release (DR/EC) 81 mg PO DAILY peg 3350-electrolytes [Golytely] 236-22.74-6.74 -5.86 gram recon soln 240 ml PO Q10M Qty: 4000 0RF Rx Instructions: until fecal effluent is clear azithromycin [Zithromax] 500 mg tablet 500 mg PO DAILY 5 Days Qty: 5 0RF prednisone 20 mg tablet 60 mg PO DAILY 5 Days Qty: 15 0RF albuterol sulfate 90 mcg/actuation HFA aerosol inhaler 2 inh inhalation Q4H PRN (Reason: shortness of breath or wheezing) Qty: 6.7 0RF Discharge Orders: Discharge ED (Routine); Ordered 04/30/25 Ordered By: Jessica More Referrals: Titus Lawrence MD [Primary Care Provider, Family Practice] Patient Instructions: Hip Contusion (ED), Rib Contusion (ED), Patient Portal & Cliff Instructions Activity Restrictions/Additional Instructions: As we discussed, x-rays of your hip and ribs are unremarkable. You need to return to the emergency department for worsening rib pain, shortness of breath, difficulty breathing, abdominal pain, bruising to your abdomen, or any other concerns you may have. Otherwise she can follow-up with primary care next week for re-evaluation. Print Language: Nicaraguan Coding Level of Care Code ED Senior Information Developer for Luigi Gomez
--- NOTE | 2025-04-30 22:35 | XRR_ITS ---
PROCEDURE INFORMATION: Exam: XR Right Ribs with PA Chest Exam date and time: 04/30/2025 10:53 PM Age: 69 years old Clinical indication: Injury or trauma; Fall; Rib area; Blunt trauma (contusions or hematomas); Prior surgery; Surgery date: 6+ months; Surgery type: Right mastectomy TECHNIQUE: Imaging protocol: Radiologic exam of the right ribs with PA chest. 429 image(s) are submitted. Views: 3 views COMPARISON: No relevant prior studies available. FINDINGS: Lungs: Unremarkable. No consolidation. Pleural spaces: Unremarkable. No pleural effusion. No pneumothorax. Heart/Mediastinum: Unremarkable. No cardiomegaly. Bones/joints: Unremarkable. XR/XR ribs RT mn 3V w [id number] IMPRESSION: No acute findings. No right-sided rib fracture seen.
== END 2025-04-30 23:51 | disposition home or self-care (01) ==
PROVIDERS: Emergency Provider Physician Assistant; PCP Family Medicine
DX: S70.01XA Contusion of right hip, initial encounter (principal); S20.20XA Contusion of thorax, unspecified, initial encounter; Z79.84 Long term (current) use of oral hypoglycemic drugs; Z79.82 Long term (current) use of aspirin; E78.5 Hyperlipidemia, unspecified; E11.9 Type 2 diabetes mellitus without complications; I10 Essential (primary) hypertension; Z85.3 Personal history of malignant neoplasm of breast; Z85.41 Personal history of malignant neoplasm of cervix uteri; W18.2XXA Fall in (into) shower or empty bathtub, initial encounter
CPT/HCPCS: 71101; 73502; 99284